=== PATIENT | female | born 1965 | race Caucasian/White ===

== ENCOUNTER 2021-07-28 13:59 | Inpatient (IN) | payer MEDICARE, OTHER ==
--- OUTSIDE RECORDS SUMMARY | 2021-07-28 14:05 | XMS REPORT | Continuity of Care Document ---
:1965 Author Organization [facility] t Address [address] [place] [address] Care Team Providers Name Role Phone ALAN_Miguel A Attending Clinician Unavailable Alan Attending Clinician [phone] DANNA Attending Clinician Unavailable Cabrera Nam Attending Clinician [phone] KWADWO Attending Clinician Unavailable KNOW Admitting Clinician Unavailable ISELA Admitting Clinician Unavailable DANNA Admitting Clinician Unavailable Payers Payer Name Policy Type Policy Number Effective Date Expiration Date [facility] [id number] 2021 (MEDICARE 00:00:00 REPLACEMENT/[place] GE - PPO) [place]IC[place]: [id number] 2009 [place] 00:00:00 Problems This patient has no known problems. Allergies, Adverse Reactions, Alerts Allergy Allergy Status Severity Reaction(s) Onset Inactive Treating Comm ents Source Name Type Date Date Clinician No Known DA Active U 2020-0 [facility] 00:00: Villagomez 00 [facility] No Known DA Active U 2020-0 [facility] Allergie - Clear s 00:00: Villagomez 00 [facility] Medications This patient has no known medications. Procedures Procedure Date / Time Performed Performing Clinician Deyanira palma [id number] 2019-02-16 00:00:00 [facility] [id number] 2019-02-16 00:00:00 [facility] Encounters Start End Encounter Admission Attending Care Care Encounter Source Date/Time Date/Time Type Type Clinicians Facility Department ID 2019-02-16 Inpatient HCACL MARCIN [id number] [facility] 03:33:00 [facility] 2019-02-16 Inpatient HCAPM MARCIN [id number] [facility] 01:51:00 [facility] 2021-07-27 2021-07-27 Outpatient CHRETIEN_F [facility] [address] 08:57:00 08:57:00 [facility] 2021-07-26 2021-07-26 Outpatient CHRETIEN_F [facility] [address] 02:14:00 02:14:00 [facility] 2021-07-26 2021-07-26 Outpatient Chretien, [facility] [id number] 00:00:00 00:00:00 Sarahy [id number] 2021-07-26 2021-07-26 Outpatient Chretien, [facility] [id number] 00:00:00 00:00:00 Sarahy [id number] 2021-07-22 2021-07-22 Outpatient CHRETIEN_F [facility] [address] 09:39:00 09:39:00 [facility] 2021-06-24 2021-06-24 Outpatient ERICKSON_R [facility] [address] 04:27:00 04:27:00 [facility] 2021-06-21 2021-06-21 Outpatient ERICKSON_R [facility] [address] 02:16:00 02:16:00 0509 [facility] 2021-06-21 2021-06-21 Outpatient Nam, [facility] [id number] 00:00:00 00:00:00 Fransico [id number] Cabrera [id number] 2021-06-15 2021-06-15 Outpatient ERICKSON_R [facility] [address] 10:18:00 10:18:00 0503 [facility] 2021-06-15 2021-06-15 Outpatient Cyril [facility] [id number] 00:00:00 00:00:00 Fransico [id number] Cabrera [id number] 2021-06-08 2021-06-08 Outpatient ERICKSON_R [facility] [address] 03:45:00 03:45:00 0426 [facility] 2021-06-08 2021-06-08 Outpatient Cyril [facility] [id number] 00:00:00 00:00:00 Fransico [id number] Cabrera [id number] Results Test Description Test Time Test Comments Results Result Comments Source GLUBED 2019-03-07 20:21:00 Test Item Value Reference Range Interpretation Comme nts GLUBED (test code = GLUBED) 145 MG/DL 70-110 H Performed by certified 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 [facility] [id number] 17:01:00 Test Item Value Reference Range Interpretation Comments GLUBED (test code = 150 MG/DL 70-110 H Performe d by certified GLUBED) 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 [facility] [id number] 08:05:00 Test Item Value Reference Range Interpretation Comments GLUBED (test code = 121 MG/DL 70-110 H Performe d by certified GLUBED) 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 [facility] [id number] 20:40:00 Test Item Value Reference Range Interpretation Comments GLUBED (test code = 182 MG/DL 70-110 H Performe d by certified GLUBED) 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 [facility] [id number] 16:53:00 Test Item Value Reference Range Interpretation Comments GLUBED (test code = 128 MG/DL 70-110 H Performe d by certified GLUBED) 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 [facility] [id number] 12:11:00 Test Item Value Reference Range Interpretation Comments GLUBED (test code = 105 MG/DL 70-110 N Performe d by certified GLUBED) 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 [facility] [id number] 09:10:00 Test Item Value Reference Range Interpretation Comments GLUBED (test code = 129 MG/DL 70-110 H Performe d by certified GLUBED) 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 [facility] [id number] 08:41:00 Test Item Value Reference Range Interpretation Comments GLUBED (test code = 141 MG/DL 70-110 H Performe d by certified GLUBED) 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 [facility] [id number] 16:12:00 Test Item Value Reference Range Interpretation Comments GLUBED (test code = 104 MG/DL 70-110 N Performe d by certified GLUBED) 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 [facility] [id number] 13:30:00 Test Item Value Reference Range Interpretation Comments GLUBED (test code = 118 MG/DL 70-110 H Performe d by certified GLUBED) 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 [facility] [id number] 08:52:00 Test Item Value Reference Range Interpretation Comments GLUBED (test code = 93 MG/DL 70-110 N Performe d by certified GLUBED) 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 [facility] [id number] 20:40:00 Test Item Value Reference Range Interpretation Comments GLUBED (test code = 181 MG/DL 70-110 H Performe d by certified GLUBED) 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 [facility] [id number] 18:12:00 Test Item Value Reference Range Interpretation Comments GLUBED (test code = 127 MG/DL 70-110 H Performe d by certified GLUBED) 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 [facility] [id number] 13:48:00 Test Item Value Reference Range Interpretation Comments GLUBED (test code = 97 MG/DL 70-110 N Performe d by certified GLUBED) 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 [facility] [id number] 08:44:00 Test Item Value Reference Range Interpretation Comments GLUBED (test code = 89 MG/DL 70-110 N Performe d by certified GLUBED) 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 [facility] BASIC METABOLIC [id number] 04:49:00 Test Item Value Reference Range Interpretation Comments SODIUM (test code = NA) 138 mEq/L 134-147 N POTASSIUM (test code = 4.0 mEq/L 3.4-5.0 N K) CHLORIDE (test code = 108 mEq/L 100-108 N CL) CARBON DIOXIDE (test 20 mEq/L 21-33 L code = CO2) ANION GAP (test code = 14 0-20 N GAP) GLUCOSE (test code = 194 mg/dL 70-110 H GLU) BLOOD UREA NITROGEN 16 mg/dL 7-18 N (test code = BUN) GLOMERULAR FILTRATION 52.4 90-95 L Units of measure = RATE (test code = GFR) ml/mi n/1.73 m2 CREATININE (test code = 1.1 mg/dL 0.6-1.3 N CREAT) CALCIUM (test code = 8.8 mg/dL 8.0-10.5 N CA) CBC W/AUTO [id number] 04:30:00 Test Item Value Reference Range Interpretation Comments WHITE BLOOD CELL (test code = 8.39 x10 3/uL 4.5-11.0 N WBC) RED BLOOD CELL (test code = 4.00 x10 6/uL 3.54-5.02 N RBC) HEMOGLOBIN (test code = HGB) 10.3 g/dL 11.0-15.0 L HEMATOCRIT (test code = HCT) 34.5 % 33.0-45.0 N MEAN CELL VOLUME (test code = 86.3 fL 81.0-99.0 N MCV) MEAN CELL HGB (test code = MCH) 25.8 pg 27.0-33.0 L MEAN CELL HGB CONCETRATION 29.9 g/dL 33.0-37.0 L (test code = MCHC) RED CELL DISTRIBUTION WIDTH CV 16.7 % 11.5-14.5 H (test code = RDW) RED CELL DISTRIBUTION WIDTH SD 51.2 fL 37.0-54.0 N (test code = RDW-SD) PLATELET COUNT (test code = 496 x10 3/uL 150-400 H PLT) MEAN PLATELET VOLUME (test code 11.9 fL 7.0-9.0 H = MPV) NEUTROPHIL % (test code = NT%) 67.9 % 56.0-77.0 N IMMATURE GRANULOCYTE % (test 1.2 % 0.0-2.0 N code = IG%) LYMPHOCYTE % (test code = LY%) 19.5 % 14.0-32.0 N MONOCYTE % (test code = MO%) 6.1 % 4.8-9.0 N EOSINOPHIL % (test code = EO%) 4.1 % 0.3-3.7 H BASOPHIL % (test code = BA%) 1.2 % 0.0-2.0 N NUCLEATED RBC % (test code = 0.0 % 0-0 N NRBC%) NEUTROPHIL # (test code = NT#) 5.70 x10 3/uL 2.0-7.6 N IMMATURE GRANULOCYTE # (test 0.10 x10 3/uL 0.00-0.03 H code = IG#) LYMPHOCYTE # (test code = LY#) 1.64 x10 3/uL 1.0-3.8 N MONOCYTE # (test code = MO#) 0.51 x10 3/uL 0.1-0.8 N EOSINOPHIL # (test code = EO#) 0.34 x10 3/uL 0.0-0.2 H BASOPHIL # (test code = BA#) 0.10 x10 3/uL 0.0-0.2 N NUCLEATED RBC # (test code = 0.00 x10 3/uL 0.0-0.1 N NRBC#) MANUAL DIFF REQUIRED (test code NO = MDIFF) [id number] 21:30:00 Test Item Value Reference Range Interpretation Comments GLUBED (test code = 163 MG/DL 70-110 H Performe d by certified GLUBED) 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 [facility] [id number] 18:12:00 Test Item Value Reference Range Interpretation Comments GLUBED (test code = 115 MG/DL 70-110 H Performe d by certified GLUBED) 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 [facility] [id number] 13:02:00 Test Item Value Reference Range Interpretation Comments GLUBED (test code = 95 MG/DL 70-110 N Performe d by certified GLUBED) 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 [facility] [id number] 08:38:00 Test Item Value Reference Range Interpretation Comments GLUBED (test code = 100 MG/DL 70-110 N Performe d by certified GLUBED) 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 [facility] [id number] 22:04:00 Test Item Value Reference Range Interpretation Comments GLUBED (test code = 118 MG/DL 70-110 H Performe d by certified GLUBED) 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 [facility] [id number] 17:07:00 Test Item Value Reference Range Interpretation Comments GLUBED (test code = 121 MG/DL 70-110 H Performe d by certified GLUBED) 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 [facility] [id number] 12:48:00 Test Item Value Reference Range Interpretation Comments GLUBED (test code = 98 MG/DL 70-110 N Performe d by certified GLUBED) 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 [facility] [id number] 08:23:00 Test Item Value Reference Range Interpretation Comments GLUBED (test code = 89 MG/DL 70-110 N Performe d by certified GLUBED) 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 [facility] BASIC METABOLIC [id number] 07:48:00 Test Item Value Reference Range Interpretation Comments SODIUM (test code = NA) 140 mEq/L 134-147 N POTASSIUM (test code = 3.5 mEq/L 3.4-5.0 N K) CHLORIDE (test code = 106 mEq/L 100-108 N CL) CARBON DIOXIDE (test 25 mEq/L 21-33 N code = CO2) ANION GAP (test code = 13 0-20 N GAP) GLUCOSE (test code = 100 mg/dL 70-110 N GLU) BLOOD UREA NITROGEN 15 mg/dL 7-18 (test code = BUN) GLOMERULAR FILTRATION 66.0 90-95 L Units of measure = RATE (test code = GFR) ml/mi n/1.73 m2 CREATININE (test code = 0.9 mg/dL 0.6-1.3 N CREAT) CALCIUM (test code = 8.9 mg/dL 8.0-10.5 N CA) CBC W/AUTO [id number] 07:21:00 Test Item Value Reference Range Interpretation Comments WHITE BLOOD CELL (test code = 8.05 x10 3/uL 4.5-11.0 N WBC) RED BLOOD CELL (test code = 4.08 x10 6/uL 3.54-5.02 N RBC) HEMOGLOBIN (test code = HGB) 10.6 g/dL 11.0-15.0 L HEMATOCRIT (test code = HCT) 35.5 % 33.0-45.0 N MEAN CELL VOLUME (test code = 87.0 fL 81.0-99.0 MCV) MEAN CELL HGB (test code = MCH) 26.0 pg 27.0-33.0 L MEAN CELL HGB CONCETRATION 29.9 g/dL 33.0-37.0 L (test code = MCHC) RED CELL DISTRIBUTION WIDTH CV 16.7 % 11.5-14.5 H (test code = RDW) RED CELL DISTRIBUTION WIDTH SD 52.0 fL 37.0-54.0 N (test code = RDW-SD) PLATELET COUNT (test code = 515 x10 3/uL 150-400 H PLT) MEAN PLATELET VOLUME (test code 11.7 fL 7.0-9.0 H = MPV) NEUTROPHIL % (test code = NT%) 63.6 % 56.0-77.0 N IMMATURE GRANULOCYTE % (test 1.1 % 0.0-2.0 N code = IG%) LYMPHOCYTE % (test code = LY%) 23.9 % 14.0-32.0 N MONOCYTE % (test code = MO%) 6.8 % 4.8-9.0 N EOSINOPHIL % (test code = EO%) 3.4 % 0.3-3.7 N BASOPHIL % (test code = BA%) 1.2 % 0.0-2.0 N NUCLEATED RBC % (test code = 0.0 % 0-0 N NRBC%) NEUTROPHIL # (test code = NT#) 5.12 x10 3/uL 2.0-7.6 N IMMATURE GRANULOCYTE # (test 0.09 x10 3/uL 0.00-0.03 H code = IG#) LYMPHOCYTE # (test code = LY#) 1.92 x10 3/uL 1.0-3.8 N MONOCYTE # (test code = MO#) 0.55 x10 3/uL 0.1-0.8 N EOSINOPHIL # (test code = EO#) 0.27 x10 3/uL 0.0-0.2 H BASOPHIL # (test code = BA#) 0.10 x10 3/uL 0.0-0.2 N NUCLEATED RBC # (test code = 0.00 x10 3/uL 0.0-0.1 N NRBC#) MANUAL DIFF REQUIRED (test code NO = MDIFF) [id number] 20:58:00 Test Item Value Reference Range Interpretation Comments GLUBED (test code = 164 MG/DL 70-110 H Performe d by certified GLUBED) 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 [facility] [id number] 17:08:00 Test Item Value Reference Range Interpretation Comments GLUBED (test code = 101 MG/DL 70-110 N Performe d by certified GLUBED) 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 [facility] [id number] 12:47:00 Test Item Value Reference Range Interpretation Comments GLUBED (test code = 95 MG/DL 70-110 N Performe d by certified GLUBED) 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 [facility] [id number] 09:33:00 Test Item Value Reference Range Interpretation Comments GLUBED (test code = 88 MG/DL 70-110 N Performe d by certified GLUBED) 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 [facility] CBC W/AUTO [id number] 09:10:00 Test Item Value Reference Range Interpretation Comments WHITE BLOOD CELL (test code = 8.16 x10 3/uL 4.5-11.0 N WBC) RED BLOOD CELL (test code = 4.44 x10 6/uL 3.54-5.02 N RBC) HEMOGLOBIN (test code = HGB) 11.3 g/dL 11.0-15.0 N HEMATOCRIT (test code = HCT) 36.7 % 33.0-45.0 N MEAN CELL VOLUME (test code = 82.7 fL 81.0-99.0 N MCV) MEAN CELL HGB (test code = MCH) 25.5 pg 27.0-33.0 L MEAN CELL HGB CONCETRATION 30.8 g/dL 33.0-37.0 L (test code = MCHC) RED CELL DISTRIBUTION WIDTH CV 16.6 % 11.5-14.5 H (test code = RDW) RED CELL DISTRIBUTION WIDTH SD 49.8 fL 37.0-54.0 N (test code = RDW-SD) PLATELET COUNT (test code = 545 x10 3/uL 150-400 H PLT) MEAN PLATELET VOLUME (test code 12.1 fL 7.0-9.0 H = MPV) NEUTROPHIL % (test code = NT%) 67.3 % 56.0-77.0 N IMMATURE GRANULOCYTE % (test 0.9 % 0.0-2.0 N code = IG%) LYMPHOCYTE % (test code = LY%) 21.7 % 14.0-32.0 N MONOCYTE % (test code = MO%) 5.5 % 4.8-9.0 N EOSINOPHIL % (test code = EO%) 3.4 % 0.3-3.7 N BASOPHIL % (test code = BA%) 1.2 % 0.0-2.0 N NUCLEATED RBC % (test code = 0.0 % 0-0 N NRBC%) NEUTROPHIL # (test code = NT#) 5.49 x10 3/uL 2.0-7.6 N IMMATURE GRANULOCYTE # (test 0.07 x10 3/uL 0.00-0.03 H code = IG#) LYMPHOCYTE # (test code = LY#) 1.77 x10 3/uL 1.0-3.8 N MONOCYTE # (test code = MO#) 0.45 x10 3/uL 0.1-0.8 N EOSINOPHIL # (test code = EO#) 0.28 x10 3/uL 0.0-0.2 H BASOPHIL # (test code = BA#) 0.10 x10 3/uL 0.0-0.2 N NUCLEATED RBC # (test code = 0.00 x10 3/uL 0.0-0.1 N NRBC#) MANUAL DIFF REQUIRED (test code NO = MDIFF) BASIC METABOLIC [id number] 08:12:00 Test Item Value Reference Range Interpretation Comments SODIUM (test code = NA) 141 mEq/L 134-147 N POTASSIUM (test code = 3.4 mEq/L 3.4-5.0 N K) CHLORIDE (test code = 108 mEq/L 100-108 N CL) CARBON DIOXIDE (test 26 mEq/L 21-33 N code = CO2) ANION GAP (test code = 10 0-20 N GAP) GLUCOSE (test code = 103 mg/dL 70-110 N GLU) BLOOD UREA NITROGEN 11 mg/dL 7-18 N (test code = BUN) GLOMERULAR FILTRATION 58.5 90-95 L Units of measure = RATE (test code = GFR) ml/mi n/1.73 m2 CREATININE (test code = 1.0 mg/dL 0.6-1.3 N CREAT) CALCIUM (test code = 9.6 mg/dL 8.0-10.5 N CA) [id number] 08:12:00 Test Item Value Reference Range Interpretation Comments MAGNESIUM (test code = MAG) 2.00 mg/dL 1.8-2.4 N [id number] 20:48:00 Test Item Value Reference Range Interpretation Comments GLUBED (test code = 138 MG/DL 70-110 H Performe d by certified GLUBED) 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 [facility] [id number] 16:50:00 Test Item Value Reference Range Interpretation Comments GLUBED (test code = 104 MG/DL 70-110 N Performe d by certified GLUBED) 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 [facility] [id number] 12:03:00 Test Item Value Reference Range Interpretation Comments GLUBED (test code = 98 MG/DL 70-110 N Performe d by certified GLUBED) 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 [facility] [id number] 08:44:00 Test Item Value Reference Range Interpretation Comments GLUBED (test code = 66 MG/DL 70-110 L Performe d by certified GLUBED) 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 [facility] BASIC METABOLIC [id number] 08:18:00 Test Item Value Reference Range Interpretation Comments SODIUM (test code = NA) 144 mEq/L 134-147 N POTASSIUM (test code = 3.0 mEq/L 3.4-5.0 L K) CHLORIDE (test code = 111 mEq/L 100-108 H CL) CARBON DIOXIDE (test 27 mEq/L 21-33 N code = CO2) ANION GAP (test code = 9 0-20 N GAP) GLUCOSE (test code = 105 mg/dL 70-110 N GLU) BLOOD UREA NITROGEN 13 mg/dL 7-18 N (test code = BUN) GLOMERULAR FILTRATION 66.0 90-95 L Units of measure = RATE (test code = GFR) ml/mi n/1.73 m2 CREATININE (test code = 0.9 mg/dL 0.6-1.3 N CREAT) CALCIUM (test code = 8.8 mg/dL 8.0-10.5 N CA) CBC W/AUTO [id number] 07:46:00 Test Item Value Reference Range Interpretation Comments WHITE BLOOD CELL (test code = 9.08 x10 3/uL 4.5-11.0 N WBC) RED BLOOD CELL (test code = 3.77 x10 6/uL 3.54-5.02 N RBC) HEMOGLOBIN (test code = HGB) 9.6 g/dL 11.0-15.0 L HEMATOCRIT (test code = HCT) 32.2 % 33.0-45.0 L MEAN CELL VOLUME (test code = 85.4 fL 81.0-99.0 N MCV) MEAN CELL HGB (test code = MCH) 25.5 pg 27.0-33.0 L MEAN CELL HGB CONCETRATION 29.8 g/dL 33.0-37.0 L (test code = MCHC) RED CELL DISTRIBUTION WIDTH CV 16.8 % 11.5-14.5 H (test code = RDW) RED CELL DISTRIBUTION WIDTH SD 51.6 fL 37.0-54.0 N (test code = RDW-SD) PLATELET COUNT (test code = 467 x10 3/uL 150-400 H PLT) MEAN PLATELET VOLUME (test code 11.5 fL 7.0-9.0 H = MPV) NEUTROPHIL % (test code = NT%) 60.8 % 56.0-77.0 N IMMATURE GRANULOCYTE % (test 0.9 % 0.0-2.0 N code = IG%) LYMPHOCYTE % (test code = LY%) 26.0 % 14.0-32.0 N MONOCYTE % (test code = MO%) 7.5 % 4.8-9.0 N EOSINOPHIL % (test code = EO%) 3.7 % 0.3-3.7 N BASOPHIL % (test code = BA%) 1.1 % 0.0-2.0 N NUCLEATED RBC % (test code = 0.0 % 0-0 N NRBC%) NEUTROPHIL # (test code = NT#) 5.52 x10 3/uL 2.0-7.6 N IMMATURE GRANULOCYTE # (test 0.08 x10 3/uL 0.00-0.03 H code = IG#) LYMPHOCYTE # (test code = LY#) 2.36 x10 3/uL 1.0-3.8 N MONOCYTE # (test code = MO#) 0.68 x10 3/uL 0.1-0.8 N EOSINOPHIL # (test code = EO#) 0.34 x10 3/uL 0.0-0.2 H BASOPHIL # (test code = BA#) 0.10 x10 3/uL 0.0-0.2 N NUCLEATED RBC # (test code = 0.00 x10 3/uL 0.0-0.1 N NRBC#) MANUAL DIFF REQUIRED (test code NO = MDIFF) [id number] 06:47:00 Test Item Value Reference Range Interpretation Comments GLUBED (test code = 75 MG/DL 70-110 N Performe d by certified GLUBED) 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 [facility] [id number] 06:46:00 Test Item Value Reference Range Interpretation Comments GLUBED (test code = 105 MG/DL 70-110 N Performe d by certified GLUBED) 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 [facility] [id number] 20:23:00 Test Item Value Reference Range Interpretation Comments GLUBED (test code = 170 MG/DL 70-110 H Performe d by certified GLUBED) 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 [facility] [id number] 17:23:00 Test Item Value Reference Range Interpretation Comments GLUBED (test code = 100 MG/DL 70-110 N Performe d by certified GLUBED) 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 [facility] BASIC METABOLIC [id number] 06:37:00 Test Item Value Reference Range Interpretation Comments SODIUM (test code = NA) 147 mEq/L 134-147 N POTASSIUM (test code = 3.3 mEq/L 3.4-5.0 L K) CHLORIDE (test code = 115 mEq/L 100-108 H CL) CARBON DIOXIDE (test 24 mEq/L 21-33 N code = CO2) ANION GAP (test code = 11 0-20 N GAP) GLUCOSE (test code = 125 mg/dL 70-110 H GLU) BLOOD UREA NITROGEN 11 mg/dL 7-18 N (test code = BUN) GLOMERULAR FILTRATION 58.5 90-95 L Units of measure = RATE (test code = GFR) ml/mi n/1.73 m2 CREATININE (test code = 1.0 mg/dL 0.6-1.3 N CREAT) CALCIUM (test code = 8.8 mg/dL 8.0-10.5 N CA) CBC W/AUTO [id number] 05:51:00 Test Item Value Reference Range Interpretation Comments WHITE BLOOD CELL (test code = 7.14 x10 3/uL 4.5-11.0 N WBC) RED BLOOD CELL (test code = 3.59 x10 6/uL 3.54-5.02 N RBC) HEMOGLOBIN (test code = HGB) 9.2 g/dL 11.0-15.0 L HEMATOCRIT (test code = HCT) 30.7 % 33.0-45.0 L MEAN CELL VOLUME (test code = 85.5 fL 81.0-99.0 N MCV) MEAN CELL HGB (test code = MCH) 25.6 pg 27.0-33.0 L MEAN CELL HGB CONCETRATION 30.0 g/dL 33.0-37.0 L (test code = MCHC) RED CELL DISTRIBUTION WIDTH CV 16.6 % 11.5-14.5 H (test code = RDW) RED CELL DISTRIBUTION WIDTH SD 51.9 fL 37.0-54.0 N (test code = RDW-SD) PLATELET COUNT (test code = 415 x10 3/uL 150-400 H PLT) MEAN PLATELET VOLUME (test code 11.0 fL 7.0-9.0 H = MPV) NEUTROPHIL % (test code = NT%) 65.3 % 56.0-77.0 N IMMATURE GRANULOCYTE % (test 1.1 % 0.0-2.0 N code = IG%) LYMPHOCYTE % (test code = LY%) 22.0 % 14.0-32.0 N MONOCYTE % (test code = MO%) 6.7 % 4.8-9.0 N EOSINOPHIL % (test code = EO%) 4.1 % 0.3-3.7 H BASOPHIL % (test code = BA%) 0.8 % 0.0-2.0 N NUCLEATED RBC % (test code = 0.0 % 0-0 N NRBC%) NEUTROPHIL # (test code = NT#) 4.66 x10 3/uL 2.0-7.6 N IMMATURE GRANULOCYTE # (test 0.08 x10 3/uL 0.00-0.03 H code = IG#) LYMPHOCYTE # (test code = LY#) 1.57 x10 3/uL 1.0-3.8 N MONOCYTE # (test code = MO#) 0.48 x10 3/uL 0.1-0.8 N EOSINOPHIL # (test code = EO#) 0.29 x10 3/uL 0.0-0.2 H BASOPHIL # (test code = BA#) 0.06 x10 3/uL 0.0-0.2 N NUCLEATED RBC # (test code = 0.00 x10 3/uL 0.0-0.1 N NRBC#) MANUAL DIFF REQUIRED (test code NO = MDIFF) [id number] 21:53:00 Test Item Value Reference Range Interpretation Comments GLUBED (test code = 110 MG/DL 70-110 N Performe d by certified GLUBED) 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 [facility] [id number] 12:32:00 Test Item Value Reference Range Interpretation Comments GLUBED (test code = 117 MG/DL 70-110 H Performe d by certified GLUBED) 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 [facility] BASIC METABOLIC [id number] 05:49:00 Test Item Value Reference Range Interpretation Comments SODIUM (test code = NA) 149 mEq/L 134-147 H POTASSIUM (test code = 3.3 mEq/L 3.4-5.0 L K) CHLORIDE (test code = 118 mEq/L 100-108 H CL) CARBON DIOXIDE (test 23 mEq/L 21-33 N code = CO2) ANION GAP (test code = 11 0-20 N GAP) GLUCOSE (test code = 114 mg/dL 70-110 H GLU) BLOOD UREA NITROGEN 10 mg/dL 7-18 N (test code = BUN) GLOMERULAR FILTRATION 75.6 90-95 L Units of measure = RATE (test code = GFR) ml/mi n/1.73 m2 CREATININE (test code = 0.8 mg/dL 0.6-1.3 N CREAT) CALCIUM (test code = 8.7 mg/dL 8.0-10.5 N CA) CBC W/AUTO [id number] 05:33:00 Test Item Value Reference Range Interpretation Comments WHITE BLOOD CELL (test code = 6.40 x10 3/uL 4.5-11.0 N WBC) RED BLOOD CELL (test code = 3.43 x10 6/uL 3.54-5.02 L RBC) HEMOGLOBIN (test code = HGB) 8.8 g/dL 11.0-15.0 L HEMATOCRIT (test code = HCT) 29.1 % 33.0-45.0 L MEAN CELL VOLUME (test code = 84.8 fL 81.0-99.0 N MCV) MEAN CELL HGB (test code = MCH) 25.7 pg 27.0-33.0 L MEAN CELL HGB CONCETRATION 30.2 g/dL 33.0-37.0 L (test code = MCHC) RED CELL DISTRIBUTION WIDTH CV 16.4 % 11.5-14.5 H (test code = RDW) RED CELL DISTRIBUTION WIDTH SD 50.8 fL 37.0-54.0 N (test code = RDW-SD) PLATELET COUNT (test code = 409 x10 3/uL 150-400 H PLT) MEAN PLATELET VOLUME (test code 10.8 fL 7.0-9.0 H = MPV) NEUTROPHIL % (test code = NT%) 63.5 % 56.0-77.0 N IMMATURE GRANULOCYTE % (test 0.6 % 0.0-2.0 N code = IG%) LYMPHOCYTE % (test code = LY%) 22.8 % 14.0-32.0 N MONOCYTE % (test code = MO%) 8.3 % 4.8-9.0 N EOSINOPHIL % (test code = EO%) 4.2 % 0.3-3.7 H BASOPHIL % (test code = BA%) 0.6 % 0.0-2.0 N NUCLEATED RBC % (test code = 0.0 % 0-0 N NRBC%) NEUTROPHIL # (test code = NT#) 4.06 x10 3/uL 2.0-7.6 N IMMATURE GRANULOCYTE # (test 0.04 x10 3/uL 0.00-0.03 H code = IG#) LYMPHOCYTE # (test code = LY#) 1.46 x10 3/uL 1.0-3.8 N MONOCYTE # (test code = MO#) 0.53 x10 3/uL 0.1-0.8 N EOSINOPHIL # (test code = EO#) 0.27 x10 3/uL 0.0-0.2 H BASOPHIL # (test code = BA#) 0.04 x10 3/uL 0.0-0.2 N NUCLEATED RBC # (test code = 0.00 x10 3/uL 0.0-0.1 N NRBC#) MANUAL DIFF REQUIRED (test code NO = MDIFF) [id number] 20:44:00 Test Item Value Reference Range Interpretation Comments GLUBED (test code = 89 MG/DL 70-110 N Performe d by certified GLUBED) 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 [facility] [id number] 18:45:00 Test Item Value Reference Range Interpretation Comments GLUBED (test code = 115 MG/DL 70-110 H Performe d by certified GLUBED) 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 [facility] - DOP TRANSCRANIAL [id number] 15:21:00 Name: BRIAN RANDHAWA [facility] Wil[place] : 1965 Age/S: 53 / F [address] [place] [address] Unit #: [id number] Loc: Joni [id number] Phys: Rosario Phillip 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 HISTORY: Subarachnoid hemorrhage. COMPARISON: Transcranial Doppler from 02/22/2019 and 2 prior Doppler studies dating back to 02/18/2019. FINDINGS: Examination could not be completed due to persistent patient movement. Therefore,the vertebrobasilar circulation could not be evaluated. Obtained findings as described below, POSTERIOR FOSSA: PSV (cm/sec) MFV (cm/sec) Basilar artery: N/A N/A Right vertebral artery: N/A N/A Left vertebral artery: N/A N/A RIGHT: PSV (cm/sec) MFV (cm/sec) Middle cerebral artery: 524 274Anterior cerebral artery: 257 143 Lind[place]ard Ratio = 2.8 LEFT: PSV (cm/sec) MFV (cm/sec) Middle cerebral artery: 1.88 0.86 Anterior cerebral artery: 404 209 Lind[place]ard Ratio = 0.77 IMPRESSION: 1. Worsening severe right middle cerebral artery vasospasm. 2. Improved moderate right anterior cerebral artery vasospasm. 3. Developing severe left anterior cerebral artery vasospasm. No vasospasm in the left MCA. 4. Nonvisualized vertebrobasilar circulation. End Impression MCA: Severity of PSV (cm/sec) MFV (cm/sec) Lindegaard Ratio vasospasm Mild 200-250 120-150 3-4.5 Moderate 250-300 150-200 4.5-6.0 Severe >300 >200 >6 PAGE 1 Signed Report (CONTINUED) Name: BRIAN RANDHAWA [facility] [place] : 1965 Age/S: 53 / F [address] [place] [address] Blvd Unit #: [id number] Loc: JoniCARLINE [address]71 Phys: Rosario Phillip NP Acct: [id number] Dis Date: Status: ADM IN PHONE #: [phone] Exam Date: 02/25/20191425 FAX #: [phone] Reason: sah EXAMS: CPT CODE: [id number] DOP TRANSCRANIAL COMP 44442<Continued> PARTS SALESMAN and GERRI: Vessel PSV (cm/sec) MFV (cm/sec) PARTS SALESMAN >120 >85 GERRI >120 >80 SL: ER-H at 1521 Reported and signed by: Yonathan Hardy M.D. 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 PROCEDURE: Multiple axial images from the skull base to the skull vertex were obtained without contrast. Coronal and sagittal reconstructed images were performed CT imaging performed at this location utilizes radiation dose optimization techniques which include one or more of the following: -Automated exposure control -Adjustment of the mA and/or kV according to patient size -Use of iterative reconstruction technique CT Radiation Dose DLP 419.7 mGy-cm Comparison is made to 02/22/2019 FINDINGS: Right lateral craniotomy defect is again noted. There is an aneurysm clip near the distal right internal carotid artery. The amount of pneumocephalus is decreased. Hemorrhage in the medial anterior right frontal lobe previouslymeasured 2.4 x 1.4 x 2.5 cm and currently measures 1.5 x 1.0 x 2.0 cm. Decreased density in the right GERRI distribution is unchanged. No new infarct is noted. No new hemorrhage is noted. No hydrocephalus is present. The amount of intraventricular hemorrhage has decreased from prior study. 3 mm leftward midline shift is unchanged. IMPRESSION: 1. Decreasing parenchymal hemorrhage in right frontal lobe. 2. 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 3. Decreasing intraventricular hemorrhage. No hydrocephalus. 4. No new hemorrhage. No new infarct. 5. Decreasing pneumocephalus after right lateral craniotomy and clipping of distal right ICA aneurysm. SL: [id number] at 1318 Reported and signed by: Baldemar Carey M.D. PAGE1 Signed Report (CONTINUED) Name: BRIAN RANDHAWA [facility] : 1965 Age/S: 53 / F [address] [place] [address] Blvd Unit #: [id number] Loc: CARLINE [place] [address] Phys: Penelope,Veronica NETWORK SYSTEMS ANALYST Acct: [id number] Dis Date: Status: ADM IN PHONE #: [phone] Exam Date: 02/25/2019 1232 FAX #: [phone] Reason: SAH EXAMS: CPT CODE: [id number] CT HEAD/BRAIN W/O CONT 83326 <Continued> CC: Penelope NETWORK SYSTEMS ANALYST; Raphael Fonseca MD Technologist:Alex Hammer, RT(R) CTDI: DLP: Trnscb Date/Time: 02/25/2019 (1318) [email or web address] Orig Print D/T: S: 02/25/2019 (1321) PAGE 2 Signed [id number] 09:50:00 Test Item Value Reference Range Interpretation Comments GLUBED (test code = 89 MG/DL 70-110 N Performe d by certified GLUBED) 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 [facility] [id number] 09:49:00 Test Item Value Reference Range Interpretation Comments GLUBED (test code = 75 MG/DL 70-110 N Performe d by certified GLUBED) 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 [facility] BASIC METABOLIC [id number] 07:15:00 Test Item Value Reference Range Interpretation Comments SODIUM (test code = NA) 146 mEq/L 134-147 N POTASSIUM (test code = 3.6 mEq/L 3.4-5.0 N K) CHLORIDE (test code = 117 mEq/L 100-108 H CL) CARBON DIOXIDE (test 23 mEq/L 21-33 N code = CO2) ANION GAP (test code = 10 0-20 N GAP) GLUCOSE (test code = 128 mg/dL 70-110 H GLU) BLOOD UREA NITROGEN 10 mg/dL 7-18 N (test code = BUN) GLOMERULAR FILTRATION 88.2 90-95 L Units of measure = RATE (test code = GFR) ml/mi n/1.73 m2 CREATININE (test code = 0.7 mg/dL 0.6-1.3 N CREAT) CALCIUM (test code = 7.9 mg/dL 8.0-10.5 L CA) [id number] 07:15:00 Test Item Value Reference Range Interpretation Comments PHOSPHOROUS (test code = PHOS) 2.7 MG/DL 2.5-4.9 N [id number] 07:15:00 Test Item Value Reference Range Interpretation Comments MAGNESIUM (test code = MAG) 2.00 mg/dL 1.8-2.4 N CALCIUM [id number] 07:15:00 Test Item Value Reference Range Interpretation Comments CALCIUM IONIZED (test code = KENTRELL) 1.16 MMOL/L 1.12-1.32 N BASIC METABOLIC [id number] 07:07:00 Test Item Value Reference Range Interpretation Comments SODIUM (test code = NA) 146 mEq/L 134-147 N POTASSIUM (test code = K) 3.6 mEq/L 3.4-5.0 N CHLORIDE (test code = CL) 117 mEq/L 100-108 H CARBON DIOXIDE (test code = CO2) 23 mEq/L 21-33 N ANION GAP (test code = GAP) 10 0-20 N GLUCOSE (test code = GLU) 128 mg/dL 70-110 H BLOOD UREA NITROGEN (test code = 10 mg/dL 7-18 N BUN) GLOMERULAR FILTRATION RATE (test 90-95 code = GFR) CREATININE (test code = CREAT) mg/dL 0.6-1.3 CALCIUM (test code = CA) 7.9 mg/dL 8.0-10.5 L [id number] 07:07:00 Test Item Value Reference Range Interpretation Comments PHOSPHOROUS (test code = PHOS) MG/DL 2.5-4.9 [id number] 07:07:00 Test Item Value Reference Range Interpretation Comments MAGNESIUM (test code = MAG) 2.00 mg/dL 1.8-2.4 N CALCIUM [id number] 07:07:00 Test Item Value Reference Range Interpretation Comments CALCIUM IONIZED (test code = KENTRELL) MMOL/L 1.12-1.32 BASIC METABOLIC [id number] 07:07:00 Test Item Value Reference Range Interpretation Comments SODIUM (test code = NA) 146 mEq/L 134-147 N POTASSIUM (test code = 3.6 mEq/L 3.4-5.0 N K) CHLORIDE (test code = 117 mEq/L 100-108 H CL) CARBON DIOXIDE (test 23 mEq/L 21-33 N code = CO2) ANION GAP (test code = 10 0-20 N GAP) GLUCOSE (test code = 128 mg/dL 70-110 H GLU) BLOOD UREA NITROGEN 10 mg/dL 7-18 N (test code = BUN) GLOMERULAR FILTRATION 88.2 90-95 L Units of measure = RATE (test code = GFR) ml/mi n/1.73 m2 CREATININE (test code = 0.7 mg/dL 0.6-1.3 N CREAT) CALCIUM (test code = 7.9 mg/dL 8.0-10.5 L CA) [id number] 07:07:00 Test Item Value Reference Range Interpretation Comments PHOSPHOROUS (test code = PHOS) 2.7 MG/DL 2.5-4.9 N [id number] 07:07:00 Test Item Value Reference Range Interpretation Comments MAGNESIUM (test code = MAG) 2.00 mg/dL 1.8-2.4 N CALCIUM [id number] 07:07:00 Test Item Value Reference Range Interpretation Comments CALCIUM IONIZED (test code = KENTRELL) MMOL/L 1.12-1.32 CBC W/AUTO [id number] 06:24:00 Test Item Value Reference Range Interpretation Comments WHITE BLOOD CELL (test code = 5.71 x10 3/uL 4.5-11.0 N WBC) RED BLOOD CELL (test code = 3.13 x10 6/uL 3.54-5.02 L RBC) HEMOGLOBIN (test code = HGB) 8.1 g/dL 11.0-15.0 L HEMATOCRIT (test code = HCT) 26.8 % 33.0-45.0 L MEAN CELL VOLUME (test code = 85.6 fL 81.0-99.0 N MCV) MEAN CELL HGB (test code = MCH) 25.9 pg 27.0-33.0 L MEAN CELL HGB CONCETRATION 30.2 g/dL 33.0-37.0 L (test code = MCHC) RED CELL DISTRIBUTION WIDTH CV 16.5 % 11.5-14.5 H (test code = RDW) RED CELL DISTRIBUTION WIDTH SD 51.6 fL 37.0-54.0 N (test code = RDW-SD) PLATELET COUNT (test code = 320 x10 3/uL 150-400 N PLT) MEAN PLATELET VOLUME (test code 11.0 fL 7.0-9.0 H = MPV) NEUTROPHIL % (test code = NT%) 60.8 % 56.0-77.0 N IMMATURE GRANULOCYTE % (test 1.1 % 0.0-2.0 N code = IG%) LYMPHOCYTE % (test code = LY%) 26.8 % 14.0-32.0 N MONOCYTE % (test code = MO%) 6.0 % 4.8-9.0 N EOSINOPHIL % (test code = EO%) 4.6 % 0.3-3.7 H BASOPHIL % (test code = BA%) 0.7 % 0.0-2.0 N NUCLEATED RBC % (test code = 0.0 % 0-0 N NRBC%) NEUTROPHIL # (test code = NT#) 3.48 x10 3/uL 2.0-7.6 N IMMATURE GRANULOCYTE # (test 0.06 x10 3/uL 0.00-0.03 H code = IG#) LYMPHOCYTE # (test code = LY#) 1.53 x10 3/uL 1.0-3.8 N MONOCYTE # (test code = MO#) 0.34 x10 3/uL 0.1-0.8 N EOSINOPHIL # (test code = EO#) 0.26 x10 3/uL 0.0-0.2 H BASOPHIL # (test code = BA#) 0.04 x10 3/uL 0.0-0.2 N NUCLEATED RBC # (test code = 0.00 x10 3/uL 0.0-0.1 N NRBC#) MANUAL DIFF REQUIRED (test code NO = MDIFF) [id number] 22:00:00 Test Item Value Reference Range Interpretation Comments GLUBED (test code = 140 MG/DL 70-110 H Performe d by certified GLUBED) 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 [facility] [id number] 16:37:00 Test Item Value Reference Range Interpretation Comments GLUBED (test code = 86 MG/DL 70-110 N Performe d by certified GLUBED) 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 [facility] [id number] 15:35:00 Test Item Value Reference Range Interpretation Comments GLUBED (test code = 118 MG/DL 70-110 H Performe d by certified GLUBED) 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 [facility] BASIC METABOLIC [id number] 14:18:00 Test Item Value Reference Range Interpretation Comments SODIUM (test code = NA) 146 mEq/L 134-147 N POTASSIUM (test code = 3.5 mEq/L 3.4-5.0 N K) CHLORIDE (test code = 116 mEq/L 100-108 H CL) CARBON DIOXIDE (test 24 mEq/L 21-33 code = CO2) ANION GAP (test code = 10 0-20 N GAP) GLUCOSE (test code = 185 mg/dL 70-110 H GLU) BLOOD UREA NITROGEN 13 mg/dL 7-18 N (test code = BUN) GLOMERULAR FILTRATION 75.6 90-95 L Units of measure = RATE (test code = GFR) ml/mi n/1.73 m2 CREATININE (test code = 0.8 mg/dL 0.6-1.3 N CREAT) CALCIUM (test code = 8.2 mg/dL 8.0-10.5 N CA) [id number] 14:18:00 Test Item Value Reference Range Interpretation Comments PHOSPHOROUS (test code = PHOS) 2.4 MG/DL 2.5-4.9 L [id number] 14:18:00 Test Item Value Reference Range Interpretation Comments MAGNESIUM (test code = MAG) 1.90 mg/dL 1.8-2.4 N CALCIUM [id number] 14:18:00 Test Item Value Reference Range Interpretation Comments CALCIUM IONIZED (test code = KENTRELL) 1.20 MMOL/L 1.12-1.32 N CBC W/AUTO [id number] 14:05:00 Test Item Value Reference Range Interpretation Comments WHITE BLOOD CELL (test code = 8.49 x10 3/uL 4.5-11.0 N WBC) RED BLOOD CELL (test code = 3.54 x10 6/uL 3.54-5.02 N RBC) HEMOGLOBIN (test code = HGB) 9.2 g/dL 11.0-15.0 L HEMATOCRIT (test code = HCT) 30.0 % 33.0-45.0 L MEAN CELL VOLUME (test code = 84.7 fL 81.0-99.0 N MCV) MEAN CELL HGB (test code = MCH) 26.0 pg 27.0-33.0 L MEAN CELL HGB CONCETRATION 30.7 g/dL 33.0-37.0 L (test code = MCHC) RED CELL DISTRIBUTION WIDTH CV 16.7 % 11.5-14.5 H (test code = RDW) RED CELL DISTRIBUTION WIDTH SD 52.1 fL 37.0-54.0 N (test code = RDW-SD) PLATELET COUNT (test code = 366 x10 3/uL 150-400 N PLT) MEAN PLATELET VOLUME (test code 10.8 fL 7.0-9.0 H = MPV) NEUTROPHIL % (test code = NT%) 66.7 % 56.0-77.0 N IMMATURE GRANULOCYTE % (test 0.8 % 0.0-2.0 N code = IG%) LYMPHOCYTE % (test code = LY%) 22.3 % 14.0-32.0 N MONOCYTE % (test code = MO%) 5.3 % 4.8-9.0 N EOSINOPHIL % (test code = EO%) 4.1 % 0.3-3.7 H BASOPHIL % (test code = BA%) 0.8 % 0.0-2.0 N NUCLEATED RBC % (test code = 0.0 % 0-0 N NRBC%) NEUTROPHIL # (test code = NT#) 5.66 x10 3/uL 2.0-7.6 N IMMATURE GRANULOCYTE # (test 0.07 x10 3/uL 0.00-0.03 H code = IG#) LYMPHOCYTE # (test code = LY#) 1.89 x10 3/uL 1.0-3.8 N MONOCYTE # (test code = MO#) 0.45 x10 3/uL 0.1-0.8 N EOSINOPHIL # (test code = EO#) 0.35 x10 3/uL 0.0-0.2 H BASOPHIL # (test code = BA#) 0.07 x10 3/uL 0.0-0.2 N NUCLEATED RBC # (test code = 0.00 x10 3/uL 0.0-0.1 N NRBC#) MANUAL DIFF REQUIRED (test code NO = MDIFF) BASIC METABOLIC [id number] 14:01:00 Test Item Value Reference Range Interpretation Comments SODIUM (test code = NA) mEq/L 134-147 POTASSIUM (test code = K) mEq/L 3.4-5.0 CHLORIDE (test code = CL) mEq/L 100-108 CARBON DIOXIDE (test code = CO2) mEq/L 21-33 ANION GAP (test code = GAP) 0-20 GLUCOSE (test code = GLU) mg/dL 70-110 BLOOD UREA NITROGEN (test code = BUN) mg/dL 7-18 GLOMERULAR FILTRATION RATE (test code 90-95 = GFR) CREATININE (test code = CREAT) mg/dL 0.6-1.3 CALCIUM (test code = CA) mg/dL 8.0-10.5 [id number] 14:01:00 Test Item Value Reference Range Interpretation Comments PHOSPHOROUS (test code = PHOS) MG/DL 2.5-4.9 [id number] 14:01:00 Test Item Value Reference Range Interpretation Comments MAGNESIUM (test code = MAG) mg/dL 1.8-2.4 CALCIUM [id number] 14:01:00 Test Item Value Reference Range Interpretation Comments CALCIUM IONIZED (test code = KENTRELL) 1.20 MMOL/L 1.12-1.32 N - XR CHEST 1 [id number] 13:00:00 FAX: Carlyn Robertson NP [phone] [place] St: ADM FAX: Raphael Hickey MD [phone] Name: BRIAN RANDHAWA [facility] : 1965 Age/S: 53/F [address] [place] [address] Unit #: [id number] Loc: [place] [address] Phys: Carlyn Robertson NP Acct: [id number] Dis Date: Status: ADM IN PHONE #: [phone] Exam Date: 02/24/2019 5212 FAX #: [phone] Reason: follow up EXAMS: CPT CODE: [id number] XR CHEST 1 V 48155 Chest single view 02/24/2019 HISTORY: Subarachnoid hemorrhage. Right craniotomy. Follow up Comparison is made to 02/16/2019. FINDINGS: The left costophrenic angle is stable. No consolidation or pleural effusion is present. Heart size is normal. Aorta is within normal limits. No vascular congestion or interstitial edema is present. IMPRESSION: No acute cardiopulmonary process. SL: [id number] at 1300 Reported and signed by: Baldemar Carey M.D. CC: Carlyn Robertson NP; Raphael Fonseca MD Technologist: SHAYNE Almanza RT(R) Trnscrd Date/Time/By: 02/24/2019 (1300) : By: [id number] Orig Print D/T: S: 02/24/2019 (1863) PAGE 1 Signed [id number] 10:16:00 Test Item Value Reference Range Interpretation Comments GLUBED (test code = 116 MG/DL 70-110 H Performe d by certified GLUBED) 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 [facility] [id number] 21:19:00 Test Item Value Reference Range Interpretation Comments GLUBED (test code = 130 MG/DL 70-110 H Performe d by certified GLUBED) 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 [facility] [id number] 16:36:00 Test Item Value Reference Range Interpretation Comments GLUBED (test code = 85 MG/DL 70-110 N Performe d by certified GLUBED) 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 [facility] [id number] 16:36:00 Test Item Value Reference Range Interpretation Comments GLUBED (test code = 88 MG/DL 70-110 N Performe d by certified GLUBED) 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 [facility] CBC W/AUTO [id number] 08:08:00 Test Item Value Reference Range Interpretation Comments WHITE BLOOD CELL (test code = 8.95 x10 3/uL 4.5-11.0 N WBC) RED BLOOD CELL (test code = 3.80 x10 6/uL 3.54-5.02 N RBC) HEMOGLOBIN (test code = HGB) 9.9 g/dL 11.0-15.0 L HEMATOCRIT (test code = HCT) 32.4 % 33.0-45.0 L MEAN CELL VOLUME (test code = 85.3 fL 81.0-99.0 N MCV) MEAN CELL HGB (test code = MCH) 26.1 pg 27.0-33.0 L MEAN CELL HGB CONCETRATION 30.6 g/dL 33.0-37.0 L (test code = MCHC) RED CELL DISTRIBUTION WIDTH CV 17.0 % 11.5-14.5 H (test code = RDW) RED CELL DISTRIBUTION WIDTH SD 52.4 fL 37.0-54.0 N (test code = RDW-SD) PLATELET COUNT (test code = 396 x10 3/uL 150-400 N PLT) MEAN PLATELET VOLUME (test code 11.4 fL 7.0-9.0 H = MPV) NEUTROPHIL % (test code = NT%) 70.0 % 56.0-77.0 N IMMATURE GRANULOCYTE % (test 0.7 % 0.0-2.0 N code = IG%) LYMPHOCYTE % (test code = LY%) 16.4 % 14.0-32.0 N MONOCYTE % (test code = MO%) 8.2 % 4.8-9.0 N EOSINOPHIL % (test code = EO%) 3.9 % 0.3-3.7 H BASOPHIL % (test code = BA%) 0.8 % 0.0-2.0 N NUCLEATED RBC % (test code = 0.0 % 0-0 N NRBC%) NEUTROPHIL # (test code = NT#) 6.27 x10 3/uL 2.0-7.6 N IMMATURE GRANULOCYTE # (test 0.06 x10 3/uL 0.00-0.03 H code = IG#) LYMPHOCYTE # (test code = LY#) 1.47 x10 3/uL 1.0-3.8 N MONOCYTE # (test code = MO#) 0.73 x10 3/uL 0.1-0.8 N EOSINOPHIL # (test code = EO#) 0.35 x10 3/uL 0.0-0.2 H BASOPHIL # (test code = BA#) 0.07 x10 3/uL 0.0-0.2 N NUCLEATED RBC # (test code = 0.00 x10 3/uL 0.0-0.1 N NRBC#) MANUAL DIFF REQUIRED (test code NO = MDIFF) [id number] 06:02:00 Test Item Value Reference Range Interpretation Comments GLUBED (test code = 102 MG/DL 70-110 N Performe d by certified GLUBED) 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 [facility] BASIC METABOLIC [id number] 05:33:00 Test Item Value Reference Range Interpretation Comments SODIUM (test code = NA) 146 mEq/L 134-147 N POTASSIUM (test code = 3.7 mEq/L 3.4-5.0 N K) CHLORIDE (test code = 117 mEq/L 100-108 H CL) CARBON DIOXIDE (test 18 mEq/L 21-33 L code = CO2) ANION GAP (test code = 15 0-20 N GAP) GLUCOSE (test code = 117 mg/dL 70-110 H GLU) BLOOD UREA NITROGEN 15 mg/dL 7-18 N (test code = BUN) GLOMERULAR FILTRATION 66.0 90-95 L Units of measure = RATE (test code = GFR) ml/mi n/1.73 m2 CREATININE (test code = 0.9 mg/dL 0.6-1.3 CREAT) CALCIUM (test code = 7.7 mg/dL 8.0-10.5 L CA) [id number] 05:33:00 Test Item Value Reference Range Interpretation Comments MAGNESIUM (test code = MAG) 2.10 mg/dL 1.8-2.4 N [id number] 05:23:00 Test Item Value Reference Range Interpretation Comments GLUBED (test code = 103 MG/DL 70-110 N Performe d by certified GLUBED) 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 [facility] [id number] 16:51:00 Test Item Value Reference Range Interpretation Comments GLUBED (test code = 116 MG/DL 70-110 H Performe d by certified GLUBED) 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 [facility] [id number] 12:34:00 Test Item Value Reference Range Interpretation Comments GLUBED (test code = 88 MG/DL 70-110 N Performe d by certified GLUBED) 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 [facility] CBC W/AUTO [id number] 09:13:00 Test Item Value Reference Range Interpretation Comments WHITE BLOOD CELL (test code = 8.59 x10 3/uL 4.5-11.0 N WBC) RED BLOOD CELL (test code = 3.71 x10 6/uL 3.54-5.02 N RBC) HEMOGLOBIN (test code = HGB) 9.5 g/dL 11.0-15.0 L HEMATOCRIT (test code = HCT) 32.2 % 33.0-45.0 L MEAN CELL VOLUME (test code = 86.8 fL 81.0-99.0 N MCV) MEAN CELL HGB (test code = MCH) 25.6 pg 27.0-33.0 L MEAN CELL HGB CONCETRATION 29.5 g/dL 33.0-37.0 L (test code = MCHC) RED CELL DISTRIBUTION WIDTH CV 17.0 % 11.5-14.5 H (test code = RDW) RED CELL DISTRIBUTION WIDTH SD 54.1 fL 37.0-54.0 H (test code = RDW-SD) PLATELET COUNT (test code = 337 x10 3/uL 150-400 N PLT) MEAN PLATELET VOLUME (test code 11.5 fL 7.0-9.0 H = MPV) NEUTROPHIL % (test code = NT%) 70.1 % 56.0-77.0 N IMMATURE GRANULOCYTE % (test 0.6 % 0.0-2.0 N code = IG%) LYMPHOCYTE % (test code = LY%) 16.4 % 14.0-32.0 N MONOCYTE % (test code = MO%) 7.9 % 4.8-9.0 N EOSINOPHIL % (test code = EO%) 4.4 % 0.3-3.7 H BASOPHIL % (test code = BA%) 0.6 % 0.0-2.0 N NUCLEATED RBC % (test code = 0.0 % 0-0 N NRBC%) NEUTROPHIL # (test code = NT#) 6.02 x10 3/uL 2.0-7.6 N IMMATURE GRANULOCYTE # (test 0.05 x10 3/uL 0.00-0.03 H code = IG#) LYMPHOCYTE # (test code = LY#) 1.41 x10 3/uL 1.0-3.8 N MONOCYTE # (test code = MO#) 0.68 x10 3/uL 0.1-0.8 N EOSINOPHIL # (test code = EO#) 0.38 x10 3/uL 0.0-0.2 H BASOPHIL # (test code = BA#) 0.05 x10 3/uL 0.0-0.2 N NUCLEATED RBC # (test code = 0.00 x10 3/uL 0.0-0.1 N NRBC#) MANUAL DIFF REQUIRED (test code NO = MDIFF) - DOP TRANSCRANIAL [id number] 09:06:00 Name: BRIAN RANDHAWA [facility] : 1965 Age/S: 53 / F [address] [place], [place] [address] Unit #: [id number] Loc: Joni [id number] Phys: Raphael Fonseca MD Acct: [id number] Dis Date: Status: ADM IN PHONE #: [phone] Exam Date: 02/22/2019 0856 FAX #: [phone] Reason: SAH EXAMS: CPT CODE: [id number] DOP TRANSCRANIAL COMP 13265 Transcranial Doppler HISTORY: Subarachnoid hemorrhage. COMPARISON: 02/21/2019 FINDINGS: POSTERIOR FOSSA: PSV (cm/sec) MFV (cm/sec) Basilar artery: Not visualized Right vertebral artery: Not visualized Left vertebral artery: 146 70 RIGHT: PSV (cm/sec) MFV (cm/sec) Middle cerebral artery: 340 189 Anterior cerebral artery: Not visualizedLindegaard Ratio = 2.3 LEFT: PSV (cm/sec) MFV (cm/sec) Middle cerebral artery: 178 93 Anterior cerebral artery: 185 99 Lindegaard Ratio = 1.43 IMPRESSION: 1. Decreasing severe vasospasm in right MCA. 2. No vasospasm in left MCA. 3. Nonvisualization of posterior circulation. End Impression MCA: Severity of PSV (cm/sec) MFV (cm/sec) Lindegaard Ratio vasospasm Mild 200-250 120-150 3-4.5 Moderate 250-300 150-200 4.5-6.0 Severe >300 >200 >6 PARTS SALESMAN and GERRI: Vessel PSV (cm/sec) MFV (cm/sec) PAGE 1 Signed Report (CONTINUED) Name: BRIAN RANDHAWA : 1965 Age/S: 53 / F [address] [place] [address] Unit #: [id number] Loc: CARLINE [place]ones [id number] Phys: Rapahel Fonseca MD Acct: [id number] Dis Date: Status: ADM IN PHONE #: [phone] Exam Date: 02/22/2019855 FAX #: [phone] Reason: SAH EXAMS: CPT CODE: [id number] DOP TRANSCRANIAL COMP 31297 <Continued> PARTS SALESMAN >120 >85 GERRI >120 >80 SL: [id number] at 0906 Reported and signed by: Baldemar Carey M.D. 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 PROCEDURE: Multiple axial images from the skull base to the skull vertex were obtained without contrast. Coronal and sagittal reconstructed images were performed CT imaging performed at this location utilizes radiation dose optimization techniques which include one or more of the following: -Automated exposure control -Adjustment of the mA and/or kV according to patient size -Use of iterative reconstruction technique CT Radiation Dose DLP 1119.8 mGy-cm Comparison is made to 02/17/2019. FINDINGS: Right lateral craniotomy defect is unchanged. The amount of pneumocephalus and scalp gas is decreased. Aneurysm clip near the distalright ICA is unchanged. Anterior medial right frontal hemorrhage is measures 2.2 x 2.0 x 1.3 cm (craniocaudad by AP by transverse), previously 2.6 x 2.7 x 1.4 cm. The hypodense area in the inferior medial right frontal lobe has increased. Decreased density in the right temporal lobe is unchanged. Small volume intraventricular hemorrhage is unchanged, however there isnow mild ventriculomegaly. Leftward midline shift previously measured 6 mm and currently measures 1 mm. No new hemorrhage is present. The visualized mastoid air cells are clear. There is no paranasal sinus air-fluid level. IMPRESSION: 1. Hypodense area in the anterior inferior right frontal lobe has increased. This may represent ischemia. 2. Stable edematous changes in right temporal lobe after right lateral craniotomy defect. 3. Resolving pneumocephalus. 4. Decreasing right frontal parenchymal hematoma. 5. Development of mild ventriculomegaly likely due to small volume intraventricular hemorrhage. SL: [id number] PAGE 1 Signed Report (CONTINUED) Name: BRIAN RANDHAWA [facility] : 1965 Age/S: 53 / F [address] [place] [address] Unit #: [id number] Loc: [place] [address] Phys: Penelope,Juneight NETWORK SYSTEMS ANALYST Acct: [id number] Dis Date: Status: ADM IN PHONE #: [phone] Exam Date: 02/22/2019339 FAX #: Reason: sah EXAMS: CPT CODE: [id number] CT HEAD/BRAIN W/O CONT 37201 <Continued> at 0800 Reported and signed by: Baldemar Carey M.D. CC: Veronica Negrete NETWORK SYSTEMS ANALYST; Raphael Goldman MD Technologist:Baldemar Palafox, RT(R)(CT) CTDI: DLP: Trnscb Date/Time: 02/22/2019 (0800) [id number] Orig Print D/T: S: 02/22/2019 (0804) PAGE 2 Signed ReportCBC W/AUTO [id number] 07:43:00 Test Item Value Reference Range Interpretation Comments WHITE BLOOD CELL (test code = 8.59 x10 3/uL 4.5-11.0 N WBC) RED BLOOD CELL (test code = 3.71 x10 6/uL 3.54-5.02 N RBC) HEMOGLOBIN (test code = HGB) 9.5 g/dL 11.0-15.0 L HEMATOCRIT (test code = HCT) 32.2 % 33.0-45.0 L MEAN CELL VOLUME (test code = 86.8 fL 81.0-99.0 N MCV) MEAN CELL HGB (test code = MCH) 25.6 pg 27.0-33.0 L MEAN CELL HGB CONCETRATION 29.5 g/dL 33.0-37.0 L (test code = MCHC) RED CELL DISTRIBUTION WIDTH CV 17.0 % 11.5-14.5 H (test code = RDW) RED CELL DISTRIBUTION WIDTH SD 54.1 fL 37.0-54.0 H (test code = RDW-SD) PLATELET COUNT (test code = 337 x10 3/uL 150-400 N PLT) MEAN PLATELET VOLUME (test code 11.5 fL 7.0-9.0 H = MPV) NEUTROPHIL % (test code = NT%) % 56.0-77.0 LYMPHOCYTE % (test code = LY%) % 14.0-32.0 NEUTROPHIL # (test code = NT#) x10 3/uL 2.0-7.6 LYMPHOCYTE # (test code = LY#) x10 3/uL 1.0-3.8 MANUAL DIFF REQUIRED (test code = MDIFF) BASIC METABOLIC [id number] 07:35:00 Test Item Value Reference Range Interpretation Comments SODIUM (test code = NA) 147 mEq/L 134-147 N POTASSIUM (test code = 3.4 mEq/L 3.4-5.0 N K) CHLORIDE (test code = 116 mEq/L 100-108 H CL) CARBON DIOXIDE (test 23 mEq/L 21-33 N code = CO2) ANION GAP (test code = 11 0-20 N GAP) GLUCOSE (test code = 114 mg/dL 70-110 H GLU) BLOOD UREA NITROGEN 12 mg/dL 7-18 N (test code = BUN) GLOMERULAR FILTRATION 88.2 90-95 L Units of measure = RATE (test code = GFR) ml/mi n/1.73 m2 CREATININE (test code = 0.7 mg/dL 0.6-1.3 CREAT) CALCIUM (test code = 8.4 mg/dL 8.0-10.5 N CA) [id number] 07:35:00 Test Item Value Reference Range Interpretation Comments MAGNESIUM (test code = MAG) 2.10 mg/dL 1.8-2.4 N [id number] 21:06:00 Test Item Value Reference Range Interpretation Comments GLUBED (test code = 124 MG/DL 70-110 H Performe d by certified GLUBED) 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 [facility] [id number] 11:27:00 Test Item Value Reference Range Interpretation Comments GLUBED (test code = 80 MG/DL 70-110 N Performe d by certified GLUBED) 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 [facility] - DOP TRANSCRANIAL [id number] 10:12:00 Name: BRIAN RANDHAWA [facility] : 1965 Age/S: 53 / F [address] [place] [address] Unit #: [id number] Loc: [place] [id number] Phys: Raphael Fonseca MD Acct: [id number] Dis Date: Status: ADM IN PHONE #: [phone] Exam Date: 02/21/2019829 FAX #: [phone] Reason: SAH EXAMS: CPT CODE: [id number] DOP TRANSCRANIAL COMP 11484 Transcranial Doppler HISTORY: Subarachnoid hemorrhage. COMPARISON: 02/18/2018 FINDINGS: POSTERIOR FOSSA: PSV (cm/sec) MFV (cm/sec) Basilar artery: 183 103 Right vertebral artery: Not visualized Left vertebral artery: 216 131 RIGHT: PSV (cm/sec) MFV (cm/sec) Middle cerebral artery: 345 193 Anterior cerebral artery: 208 112 Lindegaard Ratio = 2.57 LEFT: PSV (cm/sec) MFV (cm/sec) Middle cerebral artery: 204 107 Anterior cerebral artery: 215 126 Lindegaard Ratio = 1.01 IMPRESSION: 1. Decreasing severe vasospasm in right middle cerebral artery. 2. Decreasing mild vasospasm in left middle cerebral artery. End Impression MCA: Severity of PSV (cm/sec) MFV (cm/sec) Lindegaard Ratio vasospasm Mild 200-250 120-150 3-4.5 Moderate 250-300 150-200 4.5-6.0 Severe >300 >200 >6 PARTS SALESMAN and GERRI: Vessel PSV (cm/sec) MFV (cm/sec) PAGE 1 Signed Report (CONTINUED) Name: BRIAN RANDHAWA [facility] Ambreen Villagomez : 1965 Age/S: 53 / F [address] [place] [address] Unit #: [id number] Loc: [place] [address] Phys: Raphael Fonseca MD Acct: [id number] Dis Date: Status: ADM IN PHONE #: [phone] Exam Date: 02/21/2019 0855 FAX #: [phone] Reason: SAH EXAMS: CPT CODE: [id number] DOP TRANSCRANIAL COMP 31825 <Continued> PARTS SALESMAN >120 >85 GERRI >120 >80 SL: [id number] at 1012 Reported and signed by: Baldemar Carey M.D. CC: Raphael Fonseca MD Technologist: Yelena Whalen Trnscb Date/Time: 02/21/2019 (101) [id number] Orig Print D/T: S: 02/21/2019 (1015) Probe: PAGE 2 Signed ReportCOMPREHENSIVE METABOLIC PANEL 2019-02-21 07:21:00 Test Item Value Reference Range Interpretation Comments SODIUM (test code = NA) 150 mEq/L 134-147 H POTASSIUM (test code = 3.5 mEq/L 3.4-5.0 N K) CHLORIDE (test code = 118 mEq/L 100-108 H CL) CARBON DIOXIDE (test 25 mEq/L 21-33 N code = CO2) ANION GAP (test code = 11 0-20 N GAP) GLUCOSE (test code = 115 mg/dL 70-110 H GLU) BLOOD UREA NITROGEN 16 mg/dL 7-18 (test code = BUN) GLOMERULAR FILTRATION 52.4 90-95 L Units of measure = RATE (test code = GFR) ml/mi n/1.73 m2 CREATININE (test code = 1.1 mg/dL 0.6-1.3 CREAT) TOTAL PROTEIN (test 5.9 g/dL 6.4-8.2 L code = PROT) ALBUMIN (test code = 2.20 g/dL 3.4-5.0 L ALB) CALCIUM (test code = 8.3 mg/dL 8.0-10.5 N CA) BILIRUBIN TOTAL (test 0.3 MG/DL <1.5 N code = BILT) SGOT/AST (test code = 18 IUnit/L 15-37 N AST) SGPT/ALT (test code = 27 IUnit/L 15-65 N ALT) ALKALINE PHOSPHATASE 81 IUnit/L 20-125 N TOTAL (test code = ALKP) [id number] 07:21:00 Test Item Value Reference Range Interpretation Comments PHOSPHOROUS (test code = PHOS) 3.4 MG/DL 2.5-4.9 N [id number] 07:21:00 Test Item Value Reference Range Interpretation Comments MAGNESIUM (test code = MAG) 2.10 mg/dL 1.8-2.4 N COMPREHENSIVE METABOLIC [id number] 07:15:00 Test Item Value Reference Range Interpretation Comments SODIUM (test code = NA) 150 mEq/L 134-147 H POTASSIUM (test code = K) 3.5 mEq/L 3.4-5.0 N CHLORIDE (test code = CL) 118 mEq/L 100-108 H CARBON DIOXIDE (test code = CO2) 25 mEq/L 21-33 N ANION GAP (test code = GAP) 11 0-20 N GLUCOSE (test code = GLU) 115 mg/dL 70-110 H BLOOD UREA NITROGEN (test code = 16 mg/dL 7-18 BUN) GLOMERULAR FILTRATION RATE (test 90-95 code = GFR) CREATININE (test code = CREAT) mg/dL 0.6-1.3 TOTAL PROTEIN (test code = PROT) g/dL 6.4-8.2 ALBUMIN (test code = ALB) g/dL 3.4-5.0 CALCIUM (test code = CA) 8.3 mg/dL 8.0-10.5 N BILIRUBIN TOTAL (test code = BILT) MG/DL <1.5 SGOT/AST (test code = AST) IUnit/L 15-37 SGPT/ALT (test code = ALT) IUnit/L 15-65 ALKALINE PHOSPHATASE TOTAL (test IUnit/L 20-125 code = ALKP) [id number] 07:15:00 Test Item Value Reference Range Interpretation Comments PHOSPHOROUS (test code = PHOS) MG/DL 2.5-4.9 [id number] 07:15:00 Test Item Value Reference Range Interpretation Comments MAGNESIUM (test code = MAG) mg/dL 1.8-2.4 CBC W/AUTO [id number] 06:45:00 Test Item Value Reference Range Interpretation Comments WHITE BLOOD CELL (test code = 8.86 x10 3/uL 4.5-11.0 N WBC) RED BLOOD CELL (test code = 3.52 x10 6/uL 3.54-5.02 L RBC) HEMOGLOBIN (test code = HGB) 9.0 g/dL 11.0-15.0 L HEMATOCRIT (test code = HCT) 30.6 % 33.0-45.0 L MEAN CELL VOLUME (test code = 86.9 fL 81.0-99.0 N MCV) MEAN CELL HGB (test code = MCH) 25.6 pg 27.0-33.0 L MEAN CELL HGB CONCETRATION 29.4 g/dL 33.0-37.0 L (test code = MCHC) RED CELL DISTRIBUTION WIDTH CV 17.1 % 11.5-14.5 H (test code = RDW) RED CELL DISTRIBUTION WIDTH SD 54.2 fL 37.0-54.0 H (test code = RDW-SD) PLATELET COUNT (test code = 348 x10 3/uL 150-400 N PLT) MEAN PLATELET VOLUME (test code 11.2 fL 7.0-9.0 H = MPV) NEUTROPHIL % (test code = NT%) 74.1 % 56.0-77.0 N IMMATURE GRANULOCYTE % (test 0.3 % 0.0-2.0 N code = IG%) LYMPHOCYTE % (test code = LY%) 13.5 % 14.0-32.0 L MONOCYTE % (test code = MO%) 6.5 % 4.8-9.0 N EOSINOPHIL % (test code = EO%) 5.0 % 0.3-3.7 H BASOPHIL % (test code = BA%) 0.6 % 0.0-2.0 N NUCLEATED RBC % (test code = 0.0 % 0-0 N NRBC%) NEUTROPHIL # (test code = NT#) 6.56 x10 3/uL 2.0-7.6 N IMMATURE GRANULOCYTE # (test 0.03 x10 3/uL 0.00-0.03 N code = IG#) LYMPHOCYTE # (test code = LY#) 1.20 x10 3/uL 1.0-3.8 N MONOCYTE # (test code = MO#) 0.58 x10 3/uL 0.1-0.8 N EOSINOPHIL # (test code = EO#) 0.44 x10 3/uL 0.0-0.2 H BASOPHIL # (test code = BA#) 0.05 x10 3/uL 0.0-0.2 N NUCLEATED RBC # (test code = 0.00 x10 3/uL 0.0-0.1 N NRBC#) MANUAL DIFF REQUIRED (test code NO = MDIFF) [id number] 20:58:00 Test Item Value Reference Range Interpretation Comments GLUBED (test code = 126 MG/DL 70-110 H Performe d by certified GLUBED) 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 [facility] [id number] 16:34:00 Test Item Value Reference Range Interpretation Comments GLUBED (test code = 127 MG/DL 70-110 H Performe d by certified GLUBED) 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 [facility] [id number] 16:34:00 Test Item Value Reference Range Interpretation Comments GLUBED (test code = 120 MG/DL 70-110 H Performe d by certified GLUBED) 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 [facility] [id number] 08:52:00 Test Item Value Reference Range Interpretation Comments GLUBED (test code = 118 MG/DL 70-110 H Performe d by certified GLUBED) 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 [facility] COMPREHENSIVE METABOLIC [id number] 06:55:00 Test Item Value Reference Range Interpretation Comments SODIUM (test code = NA) 147 mEq/L 134-147 N POTASSIUM (test code = 3.5 mEq/L 3.4-5.0 N K) CHLORIDE (test code = 116 mEq/L 100-108 H CL) CARBON DIOXIDE (test 26 mEq/L 21-33 N code = CO2) ANION GAP (test code = 9 0-20 N GAP) GLUCOSE (test code = 148 mg/dL 70-110 H GLU) BLOOD UREA NITROGEN 10 mg/dL 7-18 N (test code = BUN) GLOMERULAR FILTRATION 88.2 90-95 L Units of measure = RATE (test code = GFR) ml/mi n/1.73 m2 CREATININE (test code = 0.7 mg/dL 0.6-1.3 N CREAT) TOTAL PROTEIN (test 6.6 g/dL 6.4-8.2 N code = PROT) ALBUMIN (test code = 2.30 g/dL 3.4-5.0 L ALB) CALCIUM (test code = 8.6 mg/dL 8.0-10.5 N CA) BILIRUBIN TOTAL (test 0.3 MG/DL <1.5 N code = BILT) SGOT/AST (test code = 19 IUnit/L 15-37 N AST) SGPT/ALT (test code = 25 IUnit/L 15-65 N ALT) ALKALINE PHOSPHATASE 81 IUnit/L 20-125 N TOTAL (test code = ALKP) [id number] 06:55:00 Test Item Value Reference Range Interpretation Comments PHOSPHOROUS (test code = PHOS) 3.1 MG/DL 2.5-4.9 [id number] 06:55:00 Test Item Value Reference Range Interpretation Comments MAGNESIUM (test code = MAG) 2.10 mg/dL 1.8-2.4 N CBC W/AUTO [id number] 06:40:00 Test Item Value Reference Range Interpretation Comments WHITE BLOOD CELL (test code = 11.61 x10 3/uL 4.5-11.0 H WBC) RED BLOOD CELL (test code = 3.71 x10 6/uL 3.54-5.02 N RBC) HEMOGLOBIN (test code = HGB) 9.8 g/dL 11.0-15.0 L HEMATOCRIT (test code = HCT) 31.8 % 33.0-45.0 L MEAN CELL VOLUME (test code = 85.7 fL 81.0-99.0 N MCV) MEAN CELL HGB (test code = 26.4 pg 27.0-33.0 L MCH) MEAN CELL HGB CONCETRATION 30.8 g/dL 33.0-37.0 L (test code = MCHC) RED CELL DISTRIBUTION WIDTH CV 17.2 % 11.5-14.5 H (test code = RDW) RED CELL DISTRIBUTION WIDTH SD 53.8 fL 37.0-54.0 N (test code = RDW-SD) PLATELET COUNT (test code = 358 x10 3/uL 150-400 N PLT) MEAN PLATELET VOLUME (test 11.1 fL 7.0-9.0 H code = MPV) NEUTROPHIL % (test code = NT%) 81.8 % 56.0-77.0 H IMMATURE GRANULOCYTE % (test 0.4 % 0.0-2.0 N code = IG%) LYMPHOCYTE % (test code = LY%) 7.5 % 14.0-32.0 L MONOCYTE % (test code = MO%) 5.8 % 4.8-9.0 N EOSINOPHIL % (test code = EO%) 4.0 % 0.3-3.7 H BASOPHIL % (test code = BA%) 0.5 % 0.0-2.0 N NUCLEATED RBC % (test code = 0.0 % 0-0 N NRBC%) NEUTROPHIL # (test code = NT#) 9.49 x10 3/uL 2.0-7.6 H IMMATURE GRANULOCYTE # (test 0.05 x10 3/uL 0.00-0.03 H code = IG#) LYMPHOCYTE # (test code = LY#) 0.87 x10 3/uL 1.0-3.8 L MONOCYTE # (test code = MO#) 0.67 x10 3/uL 0.1-0.8 N EOSINOPHIL # (test code = EO#) 0.47 x10 3/uL 0.0-0.2 H BASOPHIL # (test code = BA#) 0.06 x10 3/uL 0.0-0.2 N NUCLEATED RBC # (test code = 0.00 x10 3/uL 0.0-0.1 N NRBC#) MANUAL DIFF REQUIRED (test NO code = MDIFF) [id number] 21:53:00 Test Item Value Reference Range Interpretation Comments GLUBED (test code = 138 MG/DL 70-110 H Performe d by certified GLUBED) 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 [facility] [id number] 16:10:00 Test Item Value Reference Range Interpretation Comments POTASSIUM (test code = K) 3.4 mEq/L 3.4-5.0 N [id number] 15:51:00 Test Item Value Reference Range Interpretation Comments GLUBED (test code = 118 MG/DL 70-110 H Performe d by certified GLUBED) 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 [facility] [id number] 12:27:00 Test Item Value Reference Range Interpretation Comments GLUBED (test code = 132 MG/DL 70-110 H Performe d by certified GLUBED) 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 [facility] COMPREHENSIVE METABOLIC [id number] 07:29:00 Test Item Value Reference Range Interpretation Comments SODIUM (test code = NA) 147 mEq/L 134-147 N POTASSIUM (test code = 3.4 mEq/L 3.4-5.0 N K) CHLORIDE (test code = 116 mEq/L 100-108 H CL) CARBON DIOXIDE (test 24 mEq/L 21-33 N code = CO2) ANION GAP (test code = 10 0-20 N GAP) GLUCOSE (test code = 136 mg/dL 70-110 H GLU) BLOOD UREA NITROGEN 9 mg/dL 7-18 N (test code = BUN) GLOMERULAR FILTRATION 105.4 90-95 H Units of measure = RATE (test code = GFR) ml/mi n/1.73 m2 CREATININE (test code = 0.6 mg/dL 0.6-1.3 N CREAT) TOTAL PROTEIN (test 6.7 g/dL 6.4-8.2 N code = PROT) ALBUMIN (test code = 2.60 g/dL 3.4-5.0 L ALB) CALCIUM (test code = 9.0 mg/dL 8.0-10.5 N CA) BILIRUBIN TOTAL (test 0.3 MG/DL <1.5 code = BILT) SGOT/AST (test code = 15 IUnit/L 15-37 AST) SGPT/ALT (test code = 18 IUnit/L 15-65 N ALT) ALKALINE PHOSPHATASE 90 IUnit/L 20-125 N TOTAL (test code = ALKP) [id number] 07:29:00 Test Item Value Reference Range Interpretation Comments PHOSPHOROUS (test code = PHOS) 1.9 MG/DL 2.5-4.9 L [id number] 07:29:00 Test Item Value Reference Range Interpretation Comments MAGNESIUM (test code = MAG) 2.00 mg/dL 1.8-2.4 N CBC W/AUTO [id number] 07:13:00 Test Item Value Reference Range Interpretation Comments WHITE BLOOD CELL (test code = 13.64 x10 3/uL 4.5-11.0 H WBC) RED BLOOD CELL (test code = 4.03 x10 6/uL 3.54-5.02 N RBC) HEMOGLOBIN (test code = HGB) 10.4 g/dL 11.0-15.0 L HEMATOCRIT (test code = HCT) 35.3 % 33.0-45.0 N MEAN CELL VOLUME (test code = 87.6 fL 81.0-99.0 N MCV) MEAN CELL HGB (test code = 25.8 pg 27.0-33.0 L MCH) MEAN CELL HGB CONCETRATION 29.5 g/dL 33.0-37.0 L (test code = MCHC) RED CELL DISTRIBUTION WIDTH CV 17.2 % 11.5-14.5 H (test code = RDW) RED CELL DISTRIBUTION WIDTH SD 55.1 fL 37.0-54.0 H (test code = RDW-SD) PLATELET COUNT (test code = 352 x10 3/uL 150-400 N PLT) MEAN PLATELET VOLUME (test 11.6 fL 7.0-9.0 H code = MPV) NEUTROPHIL % (test code = NT%) 83.3 % 56.0-77.0 H IMMATURE GRANULOCYTE % (test 0.6 % 0.0-2.0 N code = IG%) LYMPHOCYTE % (test code = LY%) 8.7 % 14.0-32.0 L MONOCYTE % (test code = MO%) 5.6 % 4.8-9.0 N EOSINOPHIL % (test code = EO%) 1.3 % 0.3-3.7 N BASOPHIL % (test code = BA%) 0.5 % 0.0-2.0 N NUCLEATED RBC % (test code = 0.0 % 0-0 N NRBC%) NEUTROPHIL # (test code = NT#) 11.35 x10 3/uL 2.0-7.6 H IMMATURE GRANULOCYTE # (test 0.08 x10 3/uL 0.00-0.03 H code = IG#) LYMPHOCYTE # (test code = LY#) 1.19 x10 3/uL 1.0-3.8 N MONOCYTE # (test code = MO#) 0.77 x10 3/uL 0.1-0.8 N EOSINOPHIL # (test code = EO#) 0.18 x10 3/uL 0.0-0.2 N BASOPHIL # (test code = BA#) 0.07 x10 3/uL 0.0-0.2 N NUCLEATED RBC # (test code = 0.00 x10 3/uL 0.0-0.1 N NRBC#) MANUAL DIFF REQUIRED (test NO code = MDIFF) [id number] 06:08:00 Test Item Value Reference Range Interpretation Comments GLUBED (test code = 128 MG/DL 70-110 H Performe d by certified GLUBED) 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 [facility] [id number] 23:26:00 Test Item Value Reference Range Interpretation Comments GLUBED (test code = 136 MG/DL 70-110 H Performe d by certified GLUBED) 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 [facility] [id number] 21:29:00 Test Item Value Reference Range Interpretation Comments POTASSIUM (test code = K) 3.4 mEq/L 3.4-5.0 N [id number] 18:21:00 Test Item Value Reference Range Interpretation Comments POTASSIUM (test code = K) 3.4 mEq/L 3.4-5.0 N - DOP TRANSCRANIAL [id number] 12:48:00 Name: BRIAN RANDHAWA [facility] : 1965 Age/S: 53 / F [address] [place] [address] Blvd Unit #: [id number] Loc: [place] [id number] Phys: Raphael Fonseca MD Acct: [id number] Dis Date: Status: ADM IN PHONE #: [phone] Exam Date: 02/18/2019954 FAX #: [phone] Reason: SAH EXAMS: CPT CODE: [id number] DOP TRANSCRANIAL COMP 72854 Transcranial Doppler HISTORY: Subarachnoid hemorrhage. COMPARISON: None FINDINGS: POSTERIOR FOSSA: PSV (cm/sec) MFV (cm/sec) Basilar artery: 195 102 Right vertebral artery: 200 101 Left vertebral artery: 208 114 RIGHT: PSV (cm/sec) MFV (cm/sec) Middle cerebral artery: 456 241 Anterior cerebral artery: 242 113 Lindegaard Ratio = 3.29 LEFT: PSV (cm/sec) MFV (cm/sec) Middle cerebral artery: 292 157 Anterior cerebral artery: 296 140 Lindegaard Ratio = 1.48 IMPRESSION: 1. Severe vasospasm of the right middle cerebral artery. 2. Moderate vasospasm of the left middle cerebral artery. 3. Vasospasm in the bilateral anterior cerebral arteries. End Impression MCA: Severity ofPSV (cm/sec) MFV (cm/sec) Lindegaard Ratio vasospasm Mild 200-250 120-150 3-4.5 Moderate 250-300 150-200 4.5-6.0 Severe >300 >200 >6 PARTS SALESMAN and GERRI: PAGE 1 Signed Report (CONTINUED) Name: BRIAN RANDHAWA [facility] [place] : 1965 Age/S: 53 / F[address] Unit #: [id number] Loc: [place] [address] Phys: Raphael Fonseca MD Acct: [id number] Date: Status: ADM IN PHONE #: [phone] Exam Date: 02/18/2019954 FAX #: [phone] Reason: SAH EXAMS: CPT CODE: [id number] DOP TRANSCRANIAL COMP 97493 <Continued> Vessel PSV (cm/sec) MFV (cm/sec) PARTS SALESMAN >120 >85 GERRI >120 &gt ;80 Doppler at 8356 Reported and signed by: Kvng Minaya M.D. CC: Raphael Fonseca MD Technologist: Yelena Whalen TrnscbDate/Time: 02/18/2019 (8788) [id number] Orig Print D/T: S: 02/18/2019 (7937) Probe: PAGE 2 Signed [id number] 12:29:00 Test Item Value Reference Range Interpretation Comments GLUBED (test code = 124 MG/DL 70-110 H Performe d by certified GLUBED) 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 [facility] BASIC METABOLIC [id number] 05:34:00 Test Item Value Reference Range Interpretation Comments SODIUM (test code = NA) 148 mEq/L 134-147 H POTASSIUM (test code = 3.3 mEq/L 3.4-5.0 L K) CHLORIDE (test code = 116 mEq/L 100-108 H CL) CARBON DIOXIDE (test 26 mEq/L 21-33 N code = CO2) ANION GAP (test code = 9 0-20 N GAP) GLUCOSE (test code = 140 mg/dL 70-110 H GLU) BLOOD UREA NITROGEN 8 mg/dL 7-18 N (test code = BUN) GLOMERULAR FILTRATION 105.4 90-95 H Units of measure = RATE (test code = GFR) ml/mi n/1.73 m2 CREATININE (test code = 0.6 mg/dL 0.6-1.3 N CREAT) CALCIUM (test code = 8.1 mg/dL 8.0-10.5 N CA) [id number] 05:34:00 Test Item Value Reference Range Interpretation Comments MAGNESIUM (test code = MAG) 1.90 mg/dL 1.8-2.4 N CBC W/AUTO [id number] 05:17:00 Test Item Value Reference Range Interpretation Comments WHITE BLOOD CELL (test code = 14.00 x10 3/uL 4.5-11.0 H WBC) RED BLOOD CELL (test code = 3.69 x10 6/uL 3.54-5.02 N RBC) HEMOGLOBIN (test code = HGB) 9.4 g/dL 11.0-15.0 L HEMATOCRIT (test code = HCT) 31.9 % 33.0-45.0 L MEAN CELL VOLUME (test code = 86.4 fL 81.0-99.0 N MCV) MEAN CELL HGB (test code = 25.5 pg 27.0-33.0 L MCH) MEAN CELL HGB CONCETRATION 29.5 g/dL 33.0-37.0 L (test code = MCHC) RED CELL DISTRIBUTION WIDTH CV 17.0 % 11.5-14.5 H (test code = RDW) RED CELL DISTRIBUTION WIDTH SD 53.9 fL 37.0-54.0 N (test code = RDW-SD) PLATELET COUNT (test code = 334 x10 3/uL 150-400 N PLT) MEAN PLATELET VOLUME (test 11.4 fL 7.0-9.0 H code = MPV) NEUTROPHIL % (test code = NT%) 79.0 % 56.0-77.0 H IMMATURE GRANULOCYTE % (test 0.6 % 0.0-2.0 N code = IG%) LYMPHOCYTE % (test code = LY%) 11.9 % 14.0-32.0 L MONOCYTE % (test code = MO%) 8.1 % 4.8-9.0 N EOSINOPHIL % (test code = EO%) 0.1 % 0.3-3.7 L BASOPHIL % (test code = BA%) 0.3 % 0.0-2.0 N NUCLEATED RBC % (test code = 0.0 % 0-0 N NRBC%) NEUTROPHIL # (test code = NT#) 11.07 x10 3/uL 2.0-7.6 H IMMATURE GRANULOCYTE # (test 0.08 x10 3/uL 0.00-0.03 H code = IG#) LYMPHOCYTE # (test code = LY#) 1.67 x10 3/uL 1.0-3.8 N MONOCYTE # (test code = MO#) 1.13 x10 3/uL 0.1-0.8 H EOSINOPHIL # (test code = EO#) 0.01 x10 3/uL 0.0-0.2 N BASOPHIL # (test code = BA#) 0.04 x10 3/uL 0.0-0.2 N NUCLEATED RBC # (test code = 0.00 x10 3/uL 0.0-0.1 N NRBC#) MANUAL DIFF REQUIRED (test NO code = MDIFF) [id number] 00:15:00 Test Item Value Reference Range Interpretation Comments GLUBED (test code = 145 MG/DL 70-110 H Performe d by certified GLUBED) 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 [facility] [id number] 18:31:00 Test Item Value Reference Range Interpretation Comments GLUBED (test code = 139 MG/DL 70-110 H Performe d by certified GLUBED) 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 [facility] - SP INT CAROTID ANGIO [id number] 14:48:00 FAX: Lev Lucas MD [phone] [place] [address]: ADM FAX: Jonny Rodriguez MD [phone] Name: BRIAN RANDHAWA [facility] : 1965 Age/S: 53/F [address] [place] [address] Unit #: [id number] Loc: [address] Phys: Lev Vegas MD Acct: [id number] Dis Date: Status: ADM IN PHONE #: Exam Date: 02/16/2019 1044 FAX #: Reason: SAH WITH RUPTURED A-COM ARTERY ANEURYSM EXAMS: CPT CODE: [id number] SP INT CAROTID ANGIO UNI [id number] PRE PROCEDURAL DIAGNOSIS: 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 Right femoral arteriotomy and placement of 5-Finnish sheath 2, catheterization of right common carotid artery followed by angiogram 3 Selective catheterization of right internal carotid artery followed by angiogram 4 . Catheterization of left common carotid artery followed by angiogram 5. . Selective catheterization of left internal carotid artery follow-up angiogram 6 . Left vertebral artery angiogram 7. Right femoral Artery angiogram . 8. 3D rotational angiogram via catheterization of the left internal carotid artery. 8. Vascular closure seen Angio-Seal ANESTHESIA: 10 cc 1% lidocaine at right femoral region. SEDATION TIME: Continuous cardiopulmonary monitoring was performed throughout the procedure by a dedicated nurse, at the patient was electively intubated for the procedure and started on IV anesthetic drug . APPROACH: right femoral artery using modified Seldinger technique with a micropuncture set. 5-Finnish sheath placed. CONTRAST: 132 cc . FLUORO: Time 10.3 min, A plane - 791 mGy, B Plane - 75086 mGy PRIMARY SURGEON: say Jordan MD ESTIMATED BLOOD LOSS: 30 cc . INFORMED CONSENT: The procedures risks, benefits, and alternatives were discussed with the and patient . The patient agreed toproceed. All questions were answered. INDICATION: The patient is a 53-year-old femalewho came to the ER PAGE 1 Signed Report (CONTINUED) FAX: Lev Lucas MD [phone] [place]: St: ADM FAX: Jonny Rodriguez MD [phone] Name: RBIAN RANDHAWA [facility] : 1965 Age/S: 53/F [address] [place] [address] Unit #: [id number] Loc: [place] [address] Phys: Lev Vegas MD Acct: [id number] Dis Date: Status: ADM IN PHONE #: Exam Date: 02/16/2019 1044 FAX #: Reason: SAH WITH RUPTURED A-COM ARTERY ANEURYSM EXAMS: CPT CODE: [id number] SP INT CAROTID ANGIO UNI [id number] <Continued> after experiencing a severe headache and passing out in the middle of the night. Patient was brought to the hospital where CT had revealed massive intraparenchymal hemorrhage in the right frontal lobe along with some component of subarachnoid hemorrhage. CTA had revealed and 8, aneurysm almost 5 mm. The patient was transferred to [place] for possible intervention. Hunton Goel 2 Cortez grade 2 TECHNIQUE: After informed consent the patient was brought to the angiography suite and both groin regions were prepped and draped in the usual sterile fashion. The patient demographics, procedure to be performed, patient position,and equipment to be used were confirmed between the performing physicians and support team. The skin at the entry site was anesthetized using 10 cc of lidocaine and the right common femoral artery was entered using modified Seldinger technique. A 5 F sheath was placed over a 0.035" PTFE floppy wire using modified Seldinger technique with imaging of the common iliac artery confirming sheath placement. A 5 F diagnostic catheter in conjunction with a.035" angled Glidewire was used to selectively catheterize the right and left common, right and left internal c carotid arteries, left vertebral artery, . After each vessel was selected multiple AP, lateral, oblique and magnified angiographic runs were performed with filming over the head and neck. All catheters were removed following confirmation of parent vessel integrity. Hemostasis was attained at the entry site by Angio-Seal.... There were no complications during or immediately after the procedure. FINDINGS: RIGHT COMMON CAROTID: The right common carotid artery was selectively catheterized. The carotid bifurcation is located at the C5-C6 level. There is no significant stenosis at the carotid bifurcation. RIGHT INTERNAL CAROTID: The right internal carotid artery was selectively catheterized. The upper cervical, petrous, cavernous, and supraclinoid portions of the internal carotid artery opacify normally. The ophthalmic artery opacifies normally. The middle cerebral artery and anterior cerebral artery opacify normally. There is flash-filling of the anterior communicating artery and contralateral distal A2 distribution. There are normal arterial, capillary and venous phases. PAGE 2 Signed Report(CONTINUED) FAX: Lev Lucas MD [phone] [place]: St: ADM FAX: Jonny Rodriguez MD [phone] Name: BRIAN RANDHAWA [facility] : 1965 Age/S: 53/F [address] [place] [address] Blvd Unit #: [id number] Loc: [place] [place] [address] Phys: Lev Vegas MD Acct: [id number] Dis Date: Status: ADM IN PHONE#: Exam Date: 02/16/2019 1044 FAX #: Reason: SAH WITH RUPTURED A-COM ARTERY ANEURYSM EXAMS: CPT CODE: [id number] SP INT CAROTID ANGIO UNI [id number] <Continued> No evidence of vasculitis, aneurysm, branch block or AV shunting is seen. There are no areas with absent capillary blush. Major venous sinuses are patent. The right external carotid artery and its branches are patent. No significant stenosis, aneurysm, or arteriovenous shunting is seen. LEFT COMMON CAROTID: The left common carotid artery was se lectively catheterized. The carotid bifurcation is located at the C5-C6 level. There isno significant stenosis at the carotid bifurcation. LEFT INTERNAL CAROTID: The left internal carotid artery was selectively catheterized. The cervical, petrous, cavernous, andsupraclinoid portions of the internal carotid artery opacify normally. The ophthalmic artery opacifies normally. . Anterior cerebral artery appears to have normal flow the A1 segment seems to be pulmonary spasm. There is a saccular aneurysm at the anterior communicating area pointing anteriorly. Contralateral flow in the right A2 is seen which seems to be in spasm but decreased caliber. The flow in the callosal marginal arteries appear to be robust. The middlecerebral artery appears to have robust flow without any evidence of aneurysmal dilatation the inferior division branches in the distant bifurcating branches appear to opacify normallyThere are normal arterial, capillary and venous phases. No evidence of vasculitis, aneurysm, branch block or AV shunting is seen. There are no areas with absent capillary blush. Majorvenous sinuses are patent. The left external carotid artery and its branches are patent. No significant stenosis, aneurysm, or arteriovenous shunting is seen. LEFT VERTEBRAL AR CHIVO: The left vertebral artery was selectively catheterized. The distal V2, V3, and V4 segments of the left vertebral artery opacify normally. The left PICA opacifies normally. There is back-filling of the right distal vertebral artery and right PICA. The basilar artery, apex appears to be patulous with a spider web appearance. No definite aneurysmal dilatation. Theposterior cerebral arteries appear to fill distinctly with good flow. The PICA appears to be opacify normally . No evidence of vasculitis, aneurysm, arteriovenous shunting, or branchblock. There are no areas with absent capillary blush outside the right PICA distribution. Major venous sinuses are patent. . 3D ROTATIONAL ANGIOGRAM (head): Dueto the complex morphology of this PAGE 3 Signed Report(CONTINUED) FAX: Lev Lucas MD [phone] [place]: St: [facility] FAX: Jonny Rodriguez MD [phone] Name: BRIAN RANDHAWA [facility] : 1965 Age/S: 53/F [address] [place] [address] Blvd Unit #: [id number] Loc: [place] [address] Phys: Lev Vegas MD Acct: [id number] Dis Date: Status: ADM IN PHONE#: Exam Date: 02/16/2019 1044 FAX #: Reason: SAH WITH RUPTURED A-COM ARTERY ANEURYSM EXAMS: CPT CODE: [id number] SP INT CAROTID ANGIO UNI [id number] <Continued> aneurysm, a 3D rotational angiogram was required. This angiogram, distinctly acquired, reconstructed, and reviewed on a separate workstation, demonstrated 3D. The 7 x 4 mm aneurysm is seen originating from the anterior communicating area pointing superiorly. The neck of the aneurysm is relatively broad. The aneurysm has a complex morphology with multiple lobes. The contralateral A2 appears to be in spasm. The ipsilateral A1 also appears to be spasm with decreased caliber. 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 The ipsilateral A1 and contralateral A2 appear to be in spasm due to the subarachnoid hemorrhage and right frontal hematoma. 2) no other area of aneurysmal dilatation, stenosis, AV malformation identified on this angiogram All the results were relayedto the family and all questions were answered in detail. ElectronicallySigned by Meek Jordan on 02/17/2019 at 144 Reported and signed by: Say Jordan M.D. CC: Lev Vegas MD; Jonny Chandra MD Technologist: Ally BLUE(R) Trnscrd Date/Time/By: 02/17/2019 (8536) : By: SJ Orig Print D/T: S: 02/17/2019 (2743) PAGE 4 Signed Report- SP INT CAROTID ANGIO [id number] 14:48:00 FAX: Lev Lucas MD [phone] [place]: St: ADM FAX: Jonny Rodriguez MD [phone] Name: BRIAN RANDHAWA [facility] : 1965 Age/S: 53/F [address] [place] [address] Blvd Unit #: [id number] Loc: [address] [place], [place] Phys: Lev Vegas MD Acct: [id number] Dis Date: Status: ADM IN PHONE #: Exam Date: 02/16/2019 1044 FAX #: Reason: SAH WITH RUPTURED A-COM ARTERY ANEURYSM EXAMS: CPT CODE: [id number] SP INT CAROTID ANGIO UNI [id number] PRE PROCEDURAL DIAGNOSIS: 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 Right femoral arteriotomy and placement of 5-Finnish sheath 2, catheterization of right common carotid artery followed by angiogram 3 Selective catheterization of right internal carotid artery followed by angiogram 4 . Catheterization of left common carotid artery followed by angiogram 5. . Selective catheterization of left internal carotid artery follow-up angiogram 6 . Left vertebral artery angiogram 7. Right femoral Artery angiogram . 8. 3D rotational angiogram via catheterization of the left internal carotid artery. 8. Vascular closure seen Angio-Seal ANESTHESIA: 10 cc 1% lidocaine at right femoral region. SEDATION TIME: Continuous cardiopulmonary monitoring was performed throughout the procedure by a dedicated nurse, at the patient was electively intubated for the procedure and started on IV anesthetic drug . APPROACH: right femoral artery using modified Seldinger technique with a micropuncture set. 5-Finnish sheath placed. CONTRAST: 132 cc . FLUORO: Time 10.3 min, A plane - 791 mGy, B Plane - 28361 mGy PRIMARY SURGEON: say Jordan MD ESTIMATED BLOOD LOSS: 30 cc . INFORMED CONSENT: The procedures risks, benefits, and alternatives were discussed with the and patient . The patient agreed toproceed. All questions were answered. INDICATION: The patient is a 53-year-old femalewho came to the ER PAGE 1 Signed Report (CONTINUED) FAX: Lev Lucas MD [phone] [place]: St: ADM FAX: Jonny Rodriguez MD [phone] Name: BRIAN RANDHAWA [facility] : 1965 Age/S: 53/F [address] [place] [address] Unit #: [id number] Loc: [address] [address] Phys: Lev Vegas MD Acct: [id number] Dis Date: Status: ADM IN PHONE #: Exam Date: 02/16/2019 1044 FAX #: Reason: SAH WITH RUPTURED A-COM ARTERY ANEURYSM EXAMS: CPT CODE: [id number] SP INT CAROTID ANGIO UNI 96578 <Continued> after experiencing a severe headache and passing out in the middle of the night. Patient was brought to the hospital where CT had revealed massive intraparenchymal hemorrhage in the right frontal lobe along with some component of subarachnoid hemorrhage. CTA had revealed and 8, aneurysm almost 5 mm. The patient was transferred to [place] for possible intervention. Hunton Goel 2 Cortez grade 2 TECHNIQUE: After informed consent the patient was brought to the angiography suite and both groin regions were prepped and draped in the usual sterile fashion. The patient demographics, procedure to be performed, patient position,and equipment to be used were confirmed between the performing physicians and support team. The skin at the entry site was anesthetized using 10 cc of lidocaine and the right common femoral artery was entered using modified Seldinger technique. A 5 F sheath was placed over a 0.035" PTFE floppy wire using modified Seldinger technique with imaging of the common iliac artery confirming sheath placement. A 5 F diagnostic catheter in conjunction with a.035" angled Glidewire was used to selectively catheterize the right and left common, right and left internal c carotid arteries, left vertebral artery, . After each vessel was selected multiple AP, lateral, oblique and magnified angiographic runs were performed with filming over the head and neck. All catheters were removed following confirmation of parent vessel integrity. Hemostasis was attained at the entry site by Angio-Seal.... There were no complications during or immediately after the procedure. FINDINGS: RIGHT COMMON CAROTID: The right common carotid artery was selectively catheterized. The carotid bifurcation is located at the C5-C6 level. There is no significant stenosis at the carotid bifurcation. RIGHT INTERNAL CAROTID: The right internal carotid artery was selectively catheterized. The upper cervical, petrous, cavernous, and supraclinoid portions of the internal carotid artery opacify normally. The ophthalmic artery opacifies normally. The middle cerebral artery and anterior cerebral artery opacify normally. There is flash-filling of the anterior communicating artery and contralateral distal A2 distribution. There are normal arterial, capillary and venous phases. PAGE 2 Signed Report(CONTINUED) FAX: Lev Lucas MD [phone] [place]: St: ADM FAX: Jonny Rodriguez MD [phone] Name: BRIAN RANDHAWA [facility] : 1965 Age/S: 53/F [address] [place] [address] Blvd Unit #: [id number] Loc: [place] [address] Phys: Lev Vegas MD Acct: [id number] Dis Date: Status: ADM IN PHONE#: Exam Date: 02/16/2019 1043 FAX #: Reason: SAH WITH RUPTURED A-COM ARTERY ANEURYSM EXAMS: CPT CODE: [id number] SP INT CAROTID ANGIO UNI [id number] <Continued> No evidence of vasculitis, aneurysm, branch block or AV shunting is seen. There are no areas with absent capillary blush. Major venous sinuses are patent. The right external carotid artery and its branches are patent. No significant stenosis, aneurysm, or arteriovenous shunting is seen. LEFT COMMON CAROTID: The left common carotid artery was se lectively catheterized. The carotid bifurcation is located at the C5-C6 level. There isno significant stenosis at the carotid bifurcation. LEFT INTERNAL CAROTID: The left internal carotid artery was selectively catheterized. The cervical, petrous, cavernous, andsupraclinoid portions of the internal carotid artery opacify normally. The ophthalmic artery opacifies normally. . Anterior cerebral artery appears to have normal flow the A1 segment seems to be pulmonary spasm. There is a saccular aneurysm at the anterior communicating area pointing anteriorly. Contralateral flow in the right A2 is seen which seems to be in spasm but decreased caliber. The flow in the callosal marginal arteries appear to be robust. The middlecerebral artery appears to have robust flow without any evidence of aneurysmal dilatation the inferior division branches in the distant bifurcating branches appear to opacify normallyThere are normal arterial, capillary and venous phases. No evidence of vasculitis, aneurysm, branch block or AV shunting is seen. There are no areas with absent capillary blush. Majorvenous sinuses are patent. The left external carotid artery and its branches are patent. No significant stenosis, aneurysm, or arteriovenous shunting is seen. LEFT VERTEBRAL AR CHIVO: The left vertebral artery was selectively catheterized. The distal V2, V3, and V4 segments of the left vertebral artery opacify normally. The left PICA opacifies normally. There is back-filling of the right distal vertebral artery and right PICA. The basilar artery, apex appears to be patulous with a spider web appearance. No definite aneurysmal dilatation. Theposterior cerebral arteries appear to fill distinctly with good flow. The PICA appears to be opacify normally . No evidence of vasculitis, aneurysm, arteriovenous shunting, or branchblock. There are no areas with absent capillary blush outside the right PICA distribution. Major venous sinuses are patent. . 3D ROTATIONAL ANGIOGRAM (head): Dueto the complex morphology of this PAGE 3 Signed Report(CONTINUED) FAX: Lev Lucas MD [phone] [place]: St: [facility] FAX: Jonny Rodriguez MD [phone] Name: BRIAN RANDHAWA [facility] : 1965 Age/S: 53/F [address] [facility] Unit #: [id number] Loc: [place], [place] [address] Phys: Lev Vegas MD Acct: [id number] Dis Date: Status: ADM IN PHONE#: Exam Date: 02/16/2019 1041 FAX #: Reason: SAH WITH RUPTURED A-COM ARTERY ANEURYSM EXAMS: CPT CODE: [id number] SP INT CAROTID ANGIO UNI 42658 <Continued> aneurysm, a 3D rotational angiogram was required. This angiogram, distinctly acquired, reconstructed, and reviewed on a separate workstation, demonstrated 3D. The 7 x 4 mm aneurysm is seen originating from the anterior communicating area pointing superiorly. The neck of the aneurysm is relatively broad. The aneurysm has a complex morphology with multiple lobes. The contralateral A2 appears to be in spasm. The ipsilateral A1 also appears to be spasm with decreased caliber. 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 The ipsilateral A1 and contralateral A2 appear to be in spasm due to the subarachnoid hemorrhage and right frontal hematoma. 2) no other area of aneurysmal dilatation, stenosis, AV malformation identified on this angiogram All the results were relayedto the family and all questions were answered in detail. ElectronicallySigned by Meek Jordan on 02/17/2019 at 1444 Reported and signed by: Say Jordan M.D. CC: Lev Vegas MD; Jonny Chandra MD Technologist: Ally Lemons RT(R) Trnscrd Date/Time/By: 02/17/2019 (7861) : By: SJ Orig Print D/T: S: 02/17/2019 (3216) PAGE 4 Signed Report- CT HEAD/BRAIN W/O [id number] 08:41:00 Name: BRIAN RANDHAWA : 1965 Age/S: 53 / F [address] [place] [address] Unit #: [id number] Loc: [place], [place] Phys: Cecile Negretedavis NETWORK SYSTEMS ANALYST Acct: [id number] Dis Date: Status: ADM IN PHONE #: [phone] Exam Date: 02/17/2019324 FAX #: [phone] Reason: post clipping aneurysm EXAMS: CPTCODE: [id number] CT HEAD/BRAIN W/O CONT 73639 Clinical Indication: Subarachnoid hemorrhage, post aneurysm clipping Comparison: Brain CT and CTA 02/16/2019 TECHNIQUE: CT images were obtained from the foramen magnum to the vertexwithout the use of intravenous contrast on a multidetector CT. Axial, coronal and sagittal reformats created. Total exam DLP: 964.8 mGy-cm. DLP means dose length product, a radiation dose metric that does not report individual patient dose, but is a reference value related to the radiation output of the scanner used for this exam. CT imaging performed at this location utilizes radiation dose optimization techniques which include one or more of the following: -Automated exposure control -Adjustment of the mA and/or kV according topatient size -Use of iterative reconstruction technique FINDINGS:New right pterional craniotomy and clipping of a right GERRI aneurysm compared to brain CT performed on 02/16/2019. There is expected postoperative pneumocephalus along the anterior frontal convexity and swelling of the right frontal/temporal scalp resulting in a 5 mm right to left midline shift. No new intracranial hemorrhage or large subacute infarction. The volume of right frontal parenchymal and right parafalcine subdural hemorrhage has improved compared to the initial brain CT, with residual subdural hematoma measuring approximately 1.3 cm in thickness. Again noted is a small volume of subarachnoid hemorrhage. Thereis intraventricular hemorrhage, centered in the right lateral ventricle, with slight dilatation of the temporal horns of the lateral ventricles. This finding is unchanged compared to priorimaging. If there is further concern for intracranial pathology or acute stroke,MRI of the brain may be performed for complete assessment. IMPRESSION: Expected postoperative changes after clipping of a right GERRI aneurysm. No progression of hydrocephalus, new intracranial hemorrhage or large PAGE 1 Signed Report (CONTINUED) Name: BRIAN RANDHAWA [facility] : 1965 Age/S: 53 / F [address] [place] [address] Unit #: [id number] Loc: [facility] [place] [address] Phys: PenelopeVeronica NETWORK SYSTEMS ANALYST Acct: [id number] Dis Date: Status: ADM IN PHONE #: [phone] Exam Date: 02/17/2019 032 FAX #: [phone] Reason: post clipping aneurysm EXAMS: CPT CODE: [id number] CT HEAD/BRAIN W/O CONT 13760 <Continued> subacute infarction compared to 02/16/2019. Continued follow-up recommended. SL: [id number] at 0841 Reported and signed by: Merlin Avila M.D. CC: Veronica Negrete NETWORK SYSTEMS ANALYST; Raphael Fonseca MD Technologist:RT Ramya(R)(CT) CTDI: DLP: Trnscb Date/Time: 02/17/2019 (840) [id number] Orig Print D/T:S: 02/17/2019 (843) PAGE 2 Signed ReportCBC W/AUTO [id number] 06:12:00 Test Item Value Reference Range Interpretation Comments WHITE BLOOD CELL 15.87 x10 3/uL 4.5-11.0 H (test code = WBC) RED BLOOD CELL (test 3.82 x10 6/uL 3.54-5.02 N code = RBC) HEMOGLOBIN (test code 9.9 g/dL 11.0-15.0 L = HGB) HEMATOCRIT (test code 32.9 % 33.0-45.0 L = HCT) MEAN CELL VOLUME 86.1 fL 81.0-99.0 N (test code = MCV) MEAN CELL HGB (test 25.9 pg 27.0-33.0 L code = MCH) MEAN CELL HGB 30.1 g/dL 33.0-37.0 L CONCETRATION (test code = MCHC) RED CELL DISTRIBUTION 16.5 % 11.5-14.5 H WIDTH CV (test code = RDW) RED CELL DISTRIBUTION 51.8 fL 37.0-54.0 N WIDTH SD (test code = RDW-SD) PLATELET COUNT (test 314 x10 3/uL 150-400 N code = PLT) MEAN PLATELET VOLUME 11.0 fL 7.0-9.0 H (test code = MPV) NEUTROPHIL % (test 87.9 % 56.0-77.0 H code = NT%) IMMATURE GRANULOCYTE 0.6 % 0.0-2.0 N % (test code = IG%) LYMPHOCYTE % (test 4.7 % 14.0-32.0 L code = LY%) MONOCYTE % (test code 6.7 % 4.8-9.0 N = MO%) EOSINOPHIL % (test 0.0 % 0.3-3.7 L code = EO%) BASOPHIL % (test code 0.1 % 0.0-2.0 N = BA%) NUCLEATED RBC % (test 0.0 % 0-0 N code = NRBC%) NEUTROPHIL # (test 13.95 x10 3/uL 2.0-7.6 H code = NT#) IMMATURE GRANULOCYTE 0.10 x10 3/uL 0.00-0.03 H # (test code = IG#) LYMPHOCYTE # (test 0.75 x10 3/uL 1.0-3.8 L code = LY#) MONOCYTE # (test code 1.06 x10 3/uL 0.1-0.8 H = MO#) EOSINOPHIL # (test 0.00 x10 3/uL 0.0-0.2 N code = EO#) BASOPHIL # (test code 0.01 x10 3/uL 0.0-0.2 N = BA#) NUCLEATED RBC # (test 0.00 x10 3/uL 0.0-0.1 N code = NRBC#) MANUAL DIFF REQUIRED NO SLIDE R MARY, (test code = MDIFF) CONSISTE NT WITH AUTO DIFF. HGBA1C%2019-02-17 06:06:00 Test Item Value Reference Range Interpretation Comments HGBA1C% (test code = HGBA1C%) 5.8 %A1C 4.8-6.0 N BASIC METABOLIC [id number] 05:55:00 Test Item Value Reference Range Interpretation Comments SODIUM (test code = NA) 147 mEq/L 134-147 N POTASSIUM (test code = 3.3 mEq/L 3.4-5.0 L K) CHLORIDE (test code = 118 mEq/L 100-108 H CL) CARBON DIOXIDE (test 24 mEq/L 21-33 N code = CO2) ANION GAP (test code = 8 0-20 N GAP) GLUCOSE (test code = 153 mg/dL 70-110 H GLU) BLOOD UREA NITROGEN 8 mg/dL 7-18 (test code = BUN) GLOMERULAR FILTRATION 105.4 90-95 H Units of measure = RATE (test code = GFR) ml/mi n/1.73 m2 CREATININE (test code = 0.6 mg/dL 0.6-1.3 N CREAT) CALCIUM (test code = 7.9 mg/dL 8.0-10.5 L CA) COMMENTS: FastingLIPID PROFILE (CORONARY RISK)2019-02-17 05:55:00 Test Item Value Reference Range Interpretation Comments TRIGLYCERIDES (test 94 mg/dL 40-150 N code = TRIG) CHOLESTEROL (test 154 mg/dL <200 code = CHOL) CHOLESTEROL/HDL 3.42 RATIO 3.27-4.44 N RISK ASSOCIA CARON WITH RATIO (test code = CHOL/HDL RATIOS: RISK CHOLHDL) MALE FEMALE1/2 AVERA GE 3.43 3.27AVERAGE 4.97 4.4 42X AVERAGE 9.55 7.053X AVER AGE 23.39 1 1.04 NOTE THAT THE R EFERENCE VALUE IS RELATE DTO RISK LEVELS RECOM MENDED BY THE NATL.HEA RT, LUNG, AND BLOOD INST. HDL CHOLESTEROL 45.0 mg/dL 39-96 N (test code = HDL) LIPOPROTEIN LDL 77 mg/dL 0-100 N <100 OPT [id number] (test code = LDL) NEAR OPTI MAL/ABOVE [id number] 89 HIGH>PN=255 VE RY HIGH*Guidelines provided by the National Choles terol EducationProgra m Adult Treatment Panel III COMMENTS: [id number] 05:55:00 Test Item Value Reference Range Interpretation Comments MAGNESIUM (test code = MAG) 1.90 mg/dL 1.8-2.4 N COMMENTS: FastingTHYROID STIMULATING [id number] 05:55:00 Test Item Value Reference Range Interpretation Comments THYROID STIMULATING 1.67 0.42-5.47 N Results in HORMONE (test code = TSH) mi lli-International Units/mL COMMENTS: FastingCBC W/AUTO [id number] 05:17:00 Test Item Value Reference Range Interpretation Comments WHITE BLOOD CELL (test code = 15.87 x10 3/uL 4.5-11.0 H WBC) RED BLOOD CELL (test code = 3.82 x10 6/uL 3.54-5.02 N RBC) HEMOGLOBIN (test code = HGB) 9.9 g/dL 11.0-15.0 L HEMATOCRIT (test code = HCT) 32.9 % 33.0-45.0 L MEAN CELL VOLUME (test code = 86.1 fL 81.0-99.0 N MCV) MEAN CELL HGB (test code = 25.9 pg 27.0-33.0 L MCH) MEAN CELL HGB CONCETRATION 30.1 g/dL 33.0-37.0 L (test code = MCHC) RED CELL DISTRIBUTION WIDTH CV 16.5 % 11.5-14.5 H (test code = RDW) RED CELL DISTRIBUTION WIDTH SD 51.8 fL 37.0-54.0 N (test code = RDW-SD) PLATELET COUNT (test code = 314 x10 3/uL 150-400 N PLT) MEAN PLATELET VOLUME (test 11.0 fL 7.0-9.0 H code = MPV) NEUTROPHIL % (test code = NT%) % 56.0-77.0 LYMPHOCYTE % (test code = LY%) % 14.0-32.0 NEUTROPHIL # (test code = NT#) x10 3/uL 2.0-7.6 LYMPHOCYTE # (test code = LY#) x10 3/uL 1.0-3.8 MANUAL DIFF REQUIRED (test code = MDIFF) CBC W/AUTO [id number] 08:13:00 Test Item Value Reference Range Interpretation Comments WHITE BLOOD CELL (test code = 14.70 x10 3/uL 4.5-11.0 H WBC) RED BLOOD CELL (test code = 4.99 x10 6/uL 3.54-5.02 N RBC) HEMOGLOBIN (test code = HGB) 12.8 g/dL 11.0-15.0 N HEMATOCRIT (test code = HCT) 42.0 % 33.0-45.0 N MEAN CELL VOLUME (test code = 84.2 fL 81.0-99.0 N MCV) MEAN CELL HGB (test code = 25.7 pg 27.0-33.0 L MCH) MEAN CELL HGB CONCETRATION 30.5 g/dL 33.0-37.0 L (test code = MCHC) RED CELL DISTRIBUTION WIDTH CV 15.9 % 11.5-14.5 H (test code = RDW) RED CELL DISTRIBUTION WIDTH SD 48.7 fL 37.0-54.0 N (test code = RDW-SD) PLATELET COUNT (test code = 356 x10 3/uL 150-400 N PLT) MEAN PLATELET VOLUME (test 11.4 fL 7.0-9.0 H code = MPV) NEUTROPHIL % (test code = NT%) 91.4 % 56.0-77.0 H IMMATURE GRANULOCYTE % (test 0.5 % 0.0-2.0 N code = IG%) LYMPHOCYTE % (test code = LY%) 4.5 % 14.0-32.0 L MONOCYTE % (test code = MO%) 3.4 % 4.8-9.0 L EOSINOPHIL % (test code = EO%) 0.1 % 0.3-3.7 L BASOPHIL % (test code = BA%) 0.1 % 0.0-2.0 N NUCLEATED RBC % (test code = 0.0 % 0-0 N NRBC%) NEUTROPHIL # (test code = NT#) 13.42 x10 3/uL 2.0-7.6 H IMMATURE GRANULOCYTE # (test 0.08 x10 3/uL 0.00-0.03 H code = IG#) LYMPHOCYTE # (test code = LY#) 0.66 x10 3/uL 1.0-3.8 L MONOCYTE # (test code = MO#) 0.50 x10 3/uL 0.1-0.8 N EOSINOPHIL # (test code = EO#) 0.02 x10 3/uL 0.0-0.2 N BASOPHIL # (test code = BA#) 0.02 x10 3/uL 0.0-0.2 N NUCLEATED RBC # (test code = 0.00 x10 3/uL 0.0-0.1 N NRBC#) MANUAL DIFF REQUIRED (test NO code = MDIFF) PROTHROMBIN [id number] 08:02:00 Test Item Value Reference Range Interpretation Comments PT PATIENT (test code = PTP) 13.8 SECONDS 9.3-12.9 H INTERNATIONAL NORMAL RATIO 1.22 INR Unit 0.8-1.2 H (test code = INR) THROMBOPLASTIN TIME [id number] 08:02:00 Test Item Value Reference Range Interpretation Comments THROMBOPLASTIN TIME PARTIAL 32.4 SECONDS 26-35 N (test code = PTT) COMPREHENSIVE METABOLIC [id number] 07:48:00 Test Item Value Reference Range Interpretation Comments SODIUM (test code = NA) 136 mEq/L 134-147 N POTASSIUM (test code = 3.3 mEq/L 3.4-5.0 L K) CHLORIDE (test code = 104 mEq/L 100-108 N CL) CARBON DIOXIDE (test 23 mEq/L 21-33 N code = CO2) ANION GAP (test code = 12 0-20 N GAP) GLUCOSE (test code = 176 mg/dL 70-110 H GLU) BLOOD UREA NITROGEN 14 mg/dL 7-18 N (test code = BUN) GLOMERULAR FILTRATION 75.6 90-95 L Units of measure = RATE (test code = GFR) ml/mi n/1.73 m2 CREATININE (test code = 0.8 mg/dL 0.6-1.3 N CREAT) TOTAL PROTEIN (test 7.5 g/dL 6.4-8.2 N code = PROT) ALBUMIN (test code = 3.20 g/dL 3.4-5.0 L ALB) CALCIUM (test code = 9.1 mg/dL 8.0-10.5 N CA) BILIRUBIN TOTAL (test 0.5 MG/DL <1.5 N code = BILT) SGOT/AST (test code = 7 IUnit/L 15-37 L AST) SGPT/ALT (test code = 17 IUnit/L 15-65 N ALT) ALKALINE PHOSPHATASE 103 IUnit/L 20-125 N TOTAL (test code = ALKP) PROTHROMBIN [id number] 07:08:00 Test Item Value Reference Range Interpretation Comments PROTHROMBIN TIME 14.8 SECONDS 9.3-12.9 H PATIENT (test code = PTP) INTERNATIONAL NORMAL 1.4 0.8-1.2 H TARGET RATIO (test code = INR BY IN DICATION INR) Indication INR1. Prophyl axis of venous thrombos is 2.0 - 3. 0 (orthopedic facundo caprice), Prophylaxis of venous thrombos is (other than hig h-risk surgery), Snehal tment of Deep Vein Thrombosis/Pulm onary Embolism, Preve ntion of systemic emb olism - Tissue heart va lves, Acute Myocardia l Infarction (to prevent systemic embo lism), Valvular heart disease, Atri al Fibrillation, Bileaflet mecha nical valve in aortic position.2. Mec hanical prosthetic valv es (high risk), 2.5 - 3.5 Presence of Lupus Anticoagu lant or Antiphospholi pid Antibodies, Pre vention of systemic e mbolism - Acute Myocard ial Infarction (t o prevent recurre nt infarct). THROMBOPLASTIN TIME [id number] 07:08:00 Test Item Value Reference Range Interpretation Comments THROMBOPLASTIN TIME 35.8 Seconds 25.0-39.5 N Ther apeutic PARTIAL (test code = Range: 50.4 - 88.3 PTT) Seconds Effective 05/29/2018 - CT ANGIO [id number] 05:32:00 Name: BRIAN RANDHAWA [facility] [place] : 1965 Age/S: 53 / F [address] [place] [address] Blvd Unit #: [id number] Loc: Joni [id number] Phys: Jonny Chandra MD Acct: [id number] Dis Date: Status: ADM IN PHONE #: [phone] Exam Date: 02/16/2019 0402 FAX #: [phone] Reason: SUBARACHNOID EXAMS: CPTCODE: [id number] CT ANGIO NECK [address] Study: - CT ANGIO HEAD, - CT ANGIO NECK Clinical Indication: SUBARACHNOID Comparison: Noncontrast CT head performed 02/16/2019 TECHNIQUE: Sequential trans-axial images of the head and neck are obtained with a multi-detector helical CT after intravenous administration of 100ml Isovue 300. Coronal and sagittal reconstructions are acquired, along with 3D post-processing imaging for exam interpretation. All CT scans at this location are performed using dose optimization techniques as appropriate to a performed exam including the following: ? Automated exposure control ? Adjustment of the mA and/or kV according to patient size (this includes techniques or standardized protocols for targeted exams where dose is matched to indication / reason for exam; i.e. extremities or head ) ? Use of iterative reconstruction technique CT Radiation Dose DLP: 988.33 mGy-cm CTA NECK: FINDINGS: The visualized portion of the aortic arch and the great vessel origins are normal in appearance. The common carotid arteries, carotid bulbs and cervical internal and external carotid arteries bilaterally are unremarkable. Distal right internal carotid artery measures 5 mm in diameter. Distal left internal carotid artery measures 5 mm in diameter. No significant stenosis of the proximal internal carotid arteries by NASCET criteria. The vertebral arteries are normal throughout their visualized courses. There is no evidence for stenosis, occlusion, dissection or other vascular irregularity. If there is further concern, recommend conventional angiography for complete assessment. Any reported ICA stenosis directly references the distal internal carotid diameter as the denominator for stenosis measurement. NON-VASCULAR STRUCTURES: Dental erosive fabienne nges and periventricular PAGE 1 Signed Report (CONTINUED) Name: BRIAN RANDHAWA [facility] [place] : 1965 Age/S: 53 / F [address] [place] [address] Blvd Unit #: [id number] Loc: [place] [address] Phys: Jonny Chandra MD Acct: [id number] Dis Date: Status: ADM IN PHONE #: [phone] Exam Date: 02/16/2019401 FAX #: [phone] Reason: SUBARACHNOID EXAMS: CPT CODE: [id number] CT ANGIO NECK [address] <Continued> lucencies including the bilateral maxillary first molar and right maxillary second molar teeth. 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 The saccular aneurysm protrudes anteriorly and superiorly. A1 segments and proximalA2 segments of the anterior cerebral artery small in caliber, which may be secondary to vasospasm. The distal A2 segments of the anterior cerebral artery within normal limits. Bilateral middle cerebral arteries within normal limits. Distal cervical, petrous, cavernous and supraclinoid segments of the internal carotid arteries widely patent. Posterior communicating arteries not well seen and may be hypoplastic. Distal vertebral arteries widely patent. Left vertebral artery dominant. Basilar artery widely patent. Bilateral posteri or cerebral and superior cerebellar arteries within normal limits. CONTRAST ENHANCED BRAIN IMAGES: Again seen right frontal lobe parenchyma hemorrhage medially with surrounding edema. Bilateral intraventricular hemorrhage. Again seen subarachnoid helical hemorrhage along the bilateral frontal sulci. No significant abnormal parenchymal enhancement is noted. If there is further concern, recommend conventional angiography for complete assessment. 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 Decreased enhancement and narrowing of the A1 segments of and proximal A2 segments of the anterior cerebral arteries. Findings may be secondary to vasospasm and/or underlying stenosis. No significant stenosis of the proximal internal carotid arteries by NASCET criteria. No significant vertebralartery stenosis. Again seen parenchymal hemorrhage within the right frontal lobe, which PAGE 2 Signed Report (CONTINUED) Name: BRIAN RANDHAWA : 1965 Age/S: 53 / F [address] [place] [address] Unit #: [id number] Loc: CARLINE Quinones [address] Phys: Jonny Chandra MD Acct: [id number] Dis Date: Status: ADM IN PHONE #: [phone] ExamDate: 02/16/2019401 FAX #: [phone] Reason: SUBARACHNOID EXAMS: CPT CODE: [id number] CT ANGIO NECK [address] <Continued> is notsignificantly changed. Again seen intraventricular hemorrhage within bilateral lateral ventricles. Subtle areas of subarachnoid hemorrhage within the bilateral frontal sulci. SL: KPATEL-H at 0532 Reported and signed by: Ulises Franz M.D. CC: Jonny Chandra MD Technologist:RT Jose(R)(CT); Alex CTDI: DLP: Trnscb Date/Time: 02/16/2019 (0532) [email or web address] Orig Print D/T: S: 02/16/2019 (0535) PAGE 3 Signed Report - CT ANGIO [id number] 05:32:00 Name: BRIAN RANDHAWA : 1965 Age/S: 53 / F [address] [place] [address] Unit #: [id number] Loc: Joni [id number] Phys: Jonny Chandra MD Acct: [id number] Dis Date: Status: ADM IN PHONE #: [phone] Exam Date: 02/16/2019401 FAX #: [phone] Reason: SUBARACHNOID EXAMS: CPTCODE: [id number] CT ANGIO HEAD 63258 Study: - CT ANGIO HEAD, - CT ANGIO NECK Clinical Indication: SUBARACHNOID Comparison: Noncontrast CT head performed 02/16/2019 TECHNIQUE: Sequential trans-axial images of the head and neck are obtained with a multi-detector helical CT after intravenous administration of 100ml Isovue 300. Coronal and sagittal reconstructions are acquired, along with 3D post-processing imaging for exam interpretation. All CT scans at this location are performed using dose optimization techniques as appropriate to a performed exam including the following: ? Automated exposure control ? Adjustment of the mA and/or kV according to patient size (this includes techniques or standardized protocols for targeted exams where dose is matched to indication / reason for exam; i.e. extremities or head ) ? Use of iterative reconstruction technique CT Radiation Dose DLP: 988.33 mGy-cm CTA NECK: FINDINGS: The visualized portion of the aortic arch and the great vessel origins are normal in appearance. The common carotid arteries, carotid bulbs and cervical internal and external carotid arteries bilaterally are unremarkable. Distal right internal carotid artery measures 5 mm in diameter. Distal left internal carotid artery measures 5 mm in diameter. No significant stenosis of the proximal internal carotid arteries by NASCET criteria. The vertebral arteries are normal throughout their visualized courses. There is no evidence for stenosis, occlusion, dissection or other vascular irregularity. If there is further concern, recommend conventional angiography for complete assessment. Any reported ICA stenosis directly references the distal internal carotid diameter as the denominator for stenosis measurement. NON-VASCULAR STRUCTURES: Dental erosive fabienne nges and periventricular PAGE 1 Signed Report (CONTINUED) Name: BRIAN RANDHAWA [facility] : 1965 Age/S: 53 / F [address] [place] [address] Unit #: [id number] Loc: [place] [address] Phys: Jonny Chandra MD Acct: [id number] Dis Date: Status: ADM IN PHONE #: [phone] Exam Date: 02/16/2019 0402 FAX #: [phone] Reason: SUBARACHNOID EXAMS: CPT CODE: [id number] CT ANGIO HEAD [address] <Continued> lucencies including the bilateral maxillary first molar and right maxillary second molar teeth. 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 The saccular aneurysm protrudes anteriorly and superiorly. A1 segments and proximalA2 segments of the anterior cerebral artery small in caliber, which may be secondary to vasospasm. The distal A2 segments of the anterior cerebral artery within normal limits. Bilateral middle cerebral arteries within normal limits. Distal cervical, petrous, cavernous and supraclinoid segments of the internal carotid arteries widely patent. Posterior communicating arteries not well seen and may be hypoplastic. Distal vertebral arteries widely patent. Left vertebral artery dominant. Basilar artery widely patent. Bilateral posteri or cerebral and superior cerebellar arteries within normal limits. CONTRAST ENHANCED BRAIN IMAGES: Again seen right frontal lobe parenchyma hemorrhage medially with surrounding edema. Bilateral intraventricular hemorrhage. Again seen subarachnoid helical hemorrhage along the bilateral frontal sulci. No significant abnormal parenchymal enhancement is noted. If there is further concern, recommend conventional angiography for complete assessment. 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 Decreased enhancement and narrowing of the A1 segments of and proximal A2 segments of the anterior cerebral arteries. Findings may be secondary to vasospasm and/or underlying stenosis. No significant stenosis of the proximal internal carotid arteries by NASCET criteria. No significant vertebralartery stenosis. Again seen parenchymal hemorrhage within the right frontal lobe, which PAGE 2 Signed Report (CONTINUED) Name: BRIAN RANDHAWA [facility] : 1965 Age/S: 53 / F [address] [place] [address] Blvd Unit #: [id number] Loc: [place] [address] Phys: Jonny Chandra MD Acct: [id number] Dis Date: Status: ADM IN PHONE #: [phone] ExamDate: 02/16/2019 040 FAX #: [phone] Reason: SUBARACHNOID EXAMS: CPT CODE: [id number] CT ANGIO HEAD [address] <Continued> is notsignificantly changed. Again seen intraventricular hemorrhage within bilateral lateral ventricles. Subtle areas of subarachnoid hemorrhage within the bilateral frontal sulci. SL: KPATEL-H at 0532 Reported and signed by: Ulises Franz M.D. CC: Jonny Chandra MD Technologist:RT Jose(R)(CT); Alex CTDI: DLP: Trnscb Date/Time: 02/16/2019 (0532) [email or web address] Orig Print D/T: S: 02/16/2019 (0535) PAGE 3 Signed Report TROPONIN I [id number] 02:49:00 Test Item Value Reference Range Interpretation Comments TROPONIN I RAPID 0.00 ng/mL 0.00-0.08 N - The use o f serial (test code = sampling and te sting TROPIRAP) protocol is a recommended pra ctice- An elevated tro ponin level alone is often not sufficient for diagnosis of my ocardial infarction. CBC W/O [id number] 02:39:00 Test Item Value Reference Range Interpretation Comments WHITE BLOOD CELL (test code = 17.2 K/mm3 3.5-11.0 H WBC) RED BLOOD CELL (test code = RBC) 4.95 M/mm3 4.70-6.10 N HEMOGLOBIN (test code = HGB) 13.0 G/DL 10.4-14.9 N HEMATOCRIT (test code = HCT) 40.1 % 31.5-44.1 N MEAN CELL VOLUME (test code = 81.0 Fl 84.5-98.6 L MCV) MEAN CELL HGB (test code = MCH) 26.3 pg 27.0-34.2 L MEAN CELL HGB CONCETRATION (test 32.4 G/DL 31.5-34.0 N code = MCHC) RED CELL DISTRIBUTION WIDTH (test 16.8 SD 11.5-14.5 H code = RDW) PLATELET COUNT (test code = PLT) 354.0 K/mm3 150-450 N MEAN PLATELET VOLUME (test code = 10.60 fL 7.0-10.5 H MPV) - XR CHEST 1 [id number] 02:24:00 Name: BRIAN RANDHAWA [facility] : 1965 Age/S: 53 / F [address] [place] [place] Unit #: [id number] Loc: [place] [address] Phys: Rafita Engel MD Acct: [id number] Dis Date: Status: REG ER PHONE #: [phone] Exam Date: 02/16/2019209 FAX #: Reason: Code Stroke EXAMS: CPT: [id number] XR CHEST 1 V 86426 Fluoro Time: DAP (Gy m2): Air Kerma (mGy): AFTER HOURS SERVICE ON: 02/16/2019 2:24 AM AP Portable Chest Location Code M12 HISTORY: Code Stroke FINDINGS: There are no infiltrates. There are no pleural effusions. There is no pneumothorax. Cardiac silhouette and mediastinum appear within normal limits. IMPRESSION: No active pulmonary findings. at 0224 Reported and signed by: Radha Sorensen M.D. CC: Rafita Engel MD PAGE 1 Signed Report Name: BRIAN RANDHAWA [facility] : 1965 Age/S: 53 / F [address] [place] Unit #: [id number] Loc: [place] [address] Phys: Rafita Engel MD Acct: [id number] Dis Date: Status: REG ER PHONE #: [phone] Exam Date: 02/16/2019 021 FAX #: Reason: Code Stroke EXAMS: CPT: [id number] XR CHEST 1 V 85990 Fluoro Time: DAP (Gy m2): Air Kerma (mGy): <Continued> Technologist: Kam Castellon RT(R) Trnscb Date/Time: 02/16/2019 (223) [email or web address] Orig Print D/T: S: 02/16/2019 (226) PAGE 2 Signed ReportCHEMISTRY 8 [id number] 02:22:00 Test Item Value Reference Range Interpretation Comments ISTAT-SODIUM (test code = NAP) mmol/L 135-146 ISTAT-POTASSIUM (test code = KP) mmol/L 3.5-4.9 ISTAT-CHLORIDE (test code = CLP) mmol/L 98-109 ISTAT-CARBON DIOXIDE (test code = mmol/L 24-29 N ISTAT-CO2) ISTAT CALCIUM IONIZED (test code = mmol/L 1.12-1.32 ISTAT-KENTRELL) ISTAT-GLUCOSE (test code = GLUP) mg/dL 70-105 H ISTAT-BUN (test code = BUNP) mg/dL 8-26 N BEDSIDE CREATININE (test code = mg/dL 0.6-1.3 N CREATBED) GLOMERULAR FILTRATION RATE POC (test 80 51-120 N code = GFRBED) CHEMISTRY 8 [id number] 02:22:00 Test Item Value Reference Range Interpretation Comments ISTAT-SODIUM (test code = NAP) 138 mmol/L 135-146 N ISTAT-POTASSIUM (test code = KP) 3.1 mmol/L 3.5-4.9 L ISTAT-CHLORIDE (test code = CLP) 100 mmol/L 98-109 N ISTAT-CARBON DIOXIDE (test code = 24 mmol/L 24-29 N ISTAT-CO2) ISTAT CALCIUM IONIZED (test code 1.09 mmol/L 1.12-1.32 L = ISTAT-KENTRELL) ISTAT-GLUCOSE (test code = GLUP) 210 mg/dL 70-105 H ISTAT-BUN (test code = BUNP) 15 mg/dL 8-26 N BEDSIDE CREATININE (test code = 0.8 mg/dL 0.6-1.3 N CREATBED) GLOMERULAR FILTRATION RATE POC 80 51-120 N (test code = GFRBED) - CT HEAD/BRAIN W/O [id number] 02:16:00 Name: BRIAN RANDHAWA [facility] : 1965 Age/S: 53 / F [address] [place] Unit #: [id number] Loc: [place] [address] Phys: Rafita Engel MD Acct: [id number] Dis Date: Status: REG ER PHONE #: [phone] Exam Date: 02/16/2019 0154 FAX #: Reason: CODE STR AMELIA EXAMS: CPT: [id number] CT HEAD/BRAIN W/O CONT 67802 DICTATION LOCATION: 8 HISTORY: Female, 53 years of age with CODE STROKE, fall from bed twice EXAM: CT BRAIN WITHOUT CONTRAST COMPARISON: None TECHNIQUE: Helical axial images were obtained through the brain without IV contrast. Coronal and sagittal reformats were performed. One or more of the following dose reduction techniques were used: Automated exposure control; adjustment of the mA and/or kV according to the patient size; and/or use of iterative reconstruction technique. FINDINGS: No significant scalphematoma. Diffuse intraventricular hemorrhage is present, most abundant in the right lateral ventricle. There is very mild ventricular dilatation/hydrocephalus. Moderate subarachnoid hemorrhage is present in the interhemispheric fissure, mostly anteriorly. There is an oval intraparenchymal hemorrhage in the right frontal lobe measuring approximately 5.9 cm AP dimension, 2.3 cm transverse dimension and 3.2 cm longitudinal dimension associated with vasogenic edema in the right frontal lobe and approximately 0.6 cm right to left midline shift in the anterior cranial fossa. There is mild vasogenic edema in the left frontal lobe as well. There is diffuse sulcal effacement in both cerebral hemispheres. No significant downward herniation at this time. There is no acute calvarial fracture. The sinuses and mastoids are clear. IMPRESSION: 1. Right frontal lobe intraparenchymal hemorrhage, diffuse intraventricular hemorrhage with mild hydrocephalus, and there is subarachnoid hemorrhage in the interhemispheric fissure. 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 2. Vasogenic edema in both frontal lobes, right greater than left. 3. 0.6 cm right to left midline shift in the anterior cranial fossa. 4. Diffuse sulcal effacement in both cerebral hemispheres. Findings were called to Dr. Rafita Engel at 2:06 a.m. FOR INTERNAL CODING PURPOSES ONLY CRITICAL RESULT CODE: CVR PAGE 1 Signed Report (CONTINUED) Name: BRIAN RANDHAWA [facility] : 1965 Age/S: 53 / F [address] [place] Unit #: [id number] Loc: [place] [address] Phys: Rafita Egnel MD Acct: [id number] Dis Date: Status: REG ER PHONE #: [phone] Exam Date: 02/16/2019 0154 FAX #: Reason: CODE STROKE EXAMS: CPT: [id number] CT HEAD/BRAIN W/O CONT 15613 <Continued> at 0216 Reported and signed by: Halina Trivedi MD CC: Rafita Engel MD Technologist:Kam Castellon, RT(R); Jose Hopper, CTDI: DLP: Trnscb Date/Time: 02/16/2019 (215) t.[email or web address].CLW Orig Print D/T: S:02/16/2019 (8515) PAGE 2 Signed ReportCT, [id number] 11:18:00FINAL REPORT ABDOMINAL AND PELVIS CT DATED 12/13/2016 CLINICAL INFORMATION:Abdominal pain, unspecifiedright flank and RLQ pain TECHNIQUE: Pre and post intravenous contrast axial images of the abdomen and pelvis were obtained from diaphragm to the pubic symphysis. The study was performed with renal stone protocol. This exam was performed according to our departmental dose-optimization program, which includes automated exposure control, adjustment of the mA and/or kV according to patient size and/or use of interactive reconstruction technique. COMMENT: An 8 mm nodule is seen in the peripheral of the left lower lobe. Both kidneys are normal in size and functioning. There ishydronephrosis and hydroureter on the right. A 1-2 mm stone is seen in the distal right ureter in the region of the ureterovesicular junction. Inflammatory changes are seen within the right Gerota's fascia. Parapelvic cyst is seen on the left. Liver and spleen are normal in size without focal abnormality. There is diffusely decreased attenuation in the liver consistent with fatty hepatic infiltrate. Gallbladder is distended. No gallstone or biliary dilatation is noted. Pancreas and adrenals are unremarkable. Diverticular disease is seen in the large bowel without diverticulitis. The small bowel is unremarkable. Appendix is normal in caliber. A periumbilical ventral hernia is seen with herniation a segment of the omentum. The uterus and ovaries are normal in appearance. IMPRESSION: 1. Distal right ureteral stone with right hydronephrosis and hydroureter.2. Left parapelvic renal cysts.3. Fattyliver.4. Left lower lobe nodule.5. Periumbilical ventral hernia with herniation a segment of the omentum. Signed: Kam Hatch MDReport Verified Date/Time: 12/13/2016 11:18:45 Reading Location: [facility] C013Y CT Body Reading Room ALYSIS W/ REFLEX URINE [id number] 10:32:00 Test Item Value Reference Range Interpretation Comments COLOR (BEAKER) (test code = Yellow 470) CLARITY (BEAKER) (test code = Slightly Cloudy 469) SPECIFIC GRAVITY UA (BEAKER) 1.020 1.001-1.035 (test code = 468) PH UA (BEAKER) (test code = 8.0 5.0-8.0 467) PROTEIN UA (BEAKER) (test 100 mg/dL Negative A code = 464) GLUCOSE UA (BEAKER) (test Negative Negative code = 365) KETONES UA (BEAKER) (test 40 mg/dL Negative A code = 371) BILIRUBIN UA (BEAKER) (test Negative Negative code = 462) BLOOD UA (BEAKER) (test code Small Negative A = 461) NITRITE UA (BEAKER) (test Negative Negative code = 465) LEUKOCYTE ESTERASE UA Negative Negative (BEAKER) (test code = 466) UROBILINOGEN UA (BEAKER) 0.2 mg/dL 0.2-1.0 (test code = 463) BACTERIA (BEAKER) (test code Moderate = 517) MUCUS (BEAKER) (test code = Few 1574) RBC UA-MANUAL (BEAKER) (test 10-20 /HPF code = 1659) WBC UA-MANUAL (BEAKER) (test <5 /HPF code = 1661) SQUAMOUS EPITHELIAL MANUAL 5-10 /HPF (BEAKER) (test code = 1663) SOURCE(BEAKER) (test code = 2795) SCREEN, [id number] 10:22:00 Test Item Value Reference Range Interpretation Comments TEST URINE (BEAKER) (test Negative code = 583) BASIC METABOLIC [id number] 10:15:00 Test Item Value Reference Range Interpretation Comments SODIUM (BEAKER) 138 meq/L 135-148 (test code = 381) POTASSIUM (BEAKER) 4.2 meq/L 3.6-5.5 (test code = 379) CHLORIDE (BEAKER) 102 meq/L 98-106 (test code = 382) CO2 (BEAKER) (test 25 meq/L 24-32 code = 355) BLOOD UREA NITROGEN 12 mg/dL 10-26 (BEAKER) (test code = 354) CREATININE (BEAKER) 0.89 mg/dL 0.50-1.20 (test code = 358) GLUCOSE RANDOM 133 mg/dL 70-110 H (BEAKER) (test code = 652) CALCIUM (BEAKER) 9.3 mg/dL 8.5-10.5 (test code = 697) EGFR (BEAKER) (test 67 mL/min/1.73 ESTIMA CARON GFR IS code = 1092) sq m NOT ACCURATE CREATININE CLEARANCE IN PREDICTING GLOMERULAR FILTRATION RATE . ESTIMATED GFR I S NOT APPLICABLE FOR DIALYSIS PATIEN TS. HEPATIC FUNCTION [id number] 10:15:00 Test Item Value Reference Range Interpretation Comments TOTAL PROTEIN (BEAKER) (test code = 8.1 gm/dL 6.0-8.5 770) ALBUMIN (BEAKER) (test code = 1145) 4.3 g/dL 3.5-5.0 BILIRUBIN TOTAL (BEAKER) (test code 0.7 mg/dL 0.1-1.2 = 377) BILIRUBIN DIRECT (BEAKER) (test 0.5 mg/dL 0.0-0.4 H code = 706) ALKALINE PHOSPHATASE (BEAKER) (test 126 U/L 30-115 H code = 346) AST (SGOT) (BEAKER) (test code = 26 U/L 5-40 353) ALT (SGPT) (BEAKER) (test code = 20 U/L 5-50 347) [id number] 10:15:00 Test Item Value Reference Range Interpretation Comments LIPASE (BEAKER) (test code = 749) 83 U/L 40-240 CBC W/PLT COUNT & AUTO [id number] 10:06:00 Test Item Value Reference Range Interpretation Comments WHITE BLOOD CELL COUNT (BEAKER) 13.6 10e3/ L 4.0-10.0 H (test code = 775) RED BLOOD CELL COUNT (BEAKER) 5.30 10e6/ L 4.00-5.00 H (test code = 761) HEMOGLOBIN (BEAKER) (test code 12.8 g/dL 12.0-15.0 = 410) HEMATOCRIT (BEAKER) (test code 41.2 % 36.0-45.0 = 411) MEAN CORPUSCULAR VOLUME 77.7 fL 82.0-99.0 L (BEAKER) (test code = 753) MEAN CORPUSCULAR HEMOGLOBIN 24.2 pg 27.0-33.0 L (BEAKER) (test code = 751) MEAN CORPUSCULAR HEMOGLOBIN 31.2 g/dL 32.0-36.0 L CONC (BEAKER) (test code = 752) RED CELL DISTRIBUTION WIDTH 14.6 % 10.3-14.2 H (BEAKER) (test code = 412) PLATELET COUNT (BEAKER) (test 387 10e3/ L 150-430 code = 756) MEAN PLATELET VOLUME (BEAKER) 7.8 fL 6.5-10.5 (test code = 754) NEUTROPHILS RELATIVE PERCENT 87 % (BEAKER) (test code = 429) LYMPHOCYTES RELATIVE PERCENT 7 % (BEAKER) (test code = 430) MONOCYTES RELATIVE PERCENT 4 % (BEAKER) (test code = 431) EOSINOPHILS RELATIVE PERCENT 1 % (BEAKER) (test code = 432) BASOPHILS RELATIVE PERCENT 1 % (BEAKER) (test code = 437) NEUTROPHILS ABSOLUTE COUNT 11.88 10e3/ L 1.80-8.00 H (BEAKER) (test code = 670) LYMPHOCYTES ABSOLUTE COUNT 1.01 10e3/ L 1.48-4.50 L (BEAKER) (test code = 414) MONOCYTES ABSOLUTE COUNT 0.49 10e3/ L 0.00-1.30 (BEAKER) (test code = 415) EOSINOPHILS ABSOLUTE COUNT 0.15 10e3/ L 0.00-0.50 (BEAKER) (test code = 416) BASOPHILS ABSOLUTE COUNT 0.10 10e3/ L 0.00-0.20 (BEAKER) (test code = 417)
--- NOTE | 2021-07-28 16:02 | ER ---
Nurse's Notes [facility] Name: Mishel Zapien Age: 55 yrs Sex: Female : 1965 Arrival Date: 07/28/2021 Time: 14:02 Bed 16 Private MD: Diagnosis: Diverticulitis of large intestine with perforation and abscess Presentation: 07/28 14:07 Chief complaint: Patient states: i have an abscess in my colon and the sent me over tw2 here and sent some papers. i was having problems going #2 and a clear gel was coming out. i wasn't going but i started going again but not normal. she sent me to go get a cat scan and it showed that i had an abscess in my colon. and i am having some lower abdominal gardner that comes and goes. Coronavirus screen: At this time, the client does not indicate any symptoms associated with coronavirus-19. Ebola Screen: Patient denies travel to an Ebola-affected area in the 21 days before illness onset. Initial Sepsis Screen: Does the patient meet any 2 criteria? No. Patient's initial sepsis screen is negative. Does the patient have a suspected source of infection? No. Patient's initial sepsis screen is negative. Risk Assessment: Do you want to hurt yourself or someone else? Patient reports no desire to harm self or others. Onset of symptoms was July 28, 2021. 14:07 Method Of Arrival: Ambulatory tw2 14:07 Acuity: ALFA 3 tw2 Triage Assessment: 14:11 General: Appears in no apparent distress. Behavior is calm, cooperative, appropriate tw2 for age. Pain: Complains of pain in right lower quadrant and left lower quadrant. 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 - Social history:: Smoking status: Patient denies any tobacco usage or history of. Screenin:16 Abuse screen: Denies threats or abuse. Nutritional screening: No deficits noted. tw2 Tuberculosis screening: No symptoms or risk factors identified. Fall Risk None identified. Assessment: 15:15 General: Appears in no apparent distress. comfortable, Behavior is calm, cooperative. ww Pain: Complains of pain in abdomen. Neuro: Level of Consciousness is awake, alert, obeys commands, Oriented to person, place, time, situation, Moves all extremities. Gait is steady, Speech is normal. Cardiovascular: Capillary refill < 3 seconds Patient's skin is warm and dry. Rhythm is regular Chest pain is denied. GI: Abdomen is non-distended, Reports lower abdominal pain, upper abdominal pain, constipation, nausea. : No signs and/or symptoms were reported regarding the genitourinary system. Derm: No signs and/or symptoms reported regarding the dermatologic system. Skin is intact, is healthy with good turgor. Musculoskeletal: No deficits noted. No signs and/or symptoms reported regarding the musculoskeletal system. 16:25 Reassessment: Patient appears in no apparent distress at this time. No changes from ww previously documented assessment. Patient and/or family updated on plan of care and expected duration. Pain level reassessed. Patient is alert, oriented x 3, equal unlabored respirations, skin warm/dry/pink. surgeon at bedside. Discussed plan of care. Canceling CT a/p,, changing antibiotics and will reevaluate tomorrow. 17:17 Reassessment: Patient appears in no apparent distress at this time. No changes from previously documented assessment. Patient and/or family updated on plan of care and expected duration. Pain level reassessed. Patient is alert, oriented x 3, equal unlabored respirations, skin warm/dry/pink. 18:09 Reassessment: attempted to call report. Kevin answered phone and Sugey told her ww night warehouse selector will be getting the patient. SHIMA Rogers notified. Hospitalist at bedside and cancelled D5 IVF due to patient being a diabetic. Vital Signs: 14:07 BP 131 / 83; Pulse 70; Resp 17; Temp 97.8(TE); Pulse Ox 100% on R/A; Height 5 ft. 5 in. tw2 (165.10 cm); Pain 5/10; 16:30 BP 170 / 93; Pulse 84; Pulse Ox 100% ; ww 17:18 BP 159 / 80; Pulse 86; Resp 18; Pulse Ox 100% on R/A; ww ED Course: 14:02 Patient arrived in ED. rg4 14:09 Triage completed. tw2 14:12 Arm band placed on. tw2 14:25 Kevin Vogel NP is PHCP. pm1 14:25 Imtiaz Aquino MD is Attending Physician. pm1 14:56 Bed in low position. Call light in reach. tw2 14:58 Marisabel Aguilar RN is Primary Nurse. ww 16:01 Radha Ruth MD is Hospitalizing Provider. pm1 17:19 Inserted saline lock: 20 gauge in left antecubital area, using aseptic technique. ww 18:35 No provider procedures requiring assistance completed. Patient admitted, IV remains in ww place. Administered Medications: 16:43 Not Given (Physician Discretion): NS 0.9% 1000 ml IV at 1 bolus Per protocol; 1000 mL pm1 bolus 16:43 Not Given (Physician Discretion): Flagyl (metroNIDAZOLE) 500 mg 100 ml IVPB at 200 pm1 ml/hr once over 30 mins 16:43 Not Given (Physician Discretion): LevaQUIN (levofloxacin) 500 mg 100 ml IVPB once over pm1 60 mins 17:00 Drug: Zosyn (piperacillin-tazobactam) 3.375 grams Route: IVPB; Infused Over: 60 mins; ww Site: left antecubital; 17:00 Drug: NS 0.9% 1000 ml Route: IV; Rate: 125 ml/hr; Site: left antecubital; ww Medication: 15:16 VIS not applicable for this client. tw2 Outcome: 16:01 Decision to Hospitalize by Provider. pm1 18:35 Admitted to Med/surg accompanied by tech, via wheelchair, room 217, with chart, Report ww called to Telma 18:35 Condition: stable 18:35 Instructed on the need for admit. 18:36 Patient left the ED. ww Signatures: Kevin Vogel NP LIFE INSURANCE SALESPERSON pm1 Sandra Valencia RN RN tw2 Nohemy Jenkins rg4 Marisabel Aguilar RN RN ww Corrections: (The following items were deleted from the chart) 14:12 14:09 PSHx: None; tw2 tw2
--- NOTE | 2021-07-28 16:02 | EDPHYS ---
Physician Documentation [facility] Name: Mishel Zapien Age: 55 yrs Sex: Female : 1965 Arrival Date: 07/28/2021 Time: 14:02 Bed 16 Private MD: ED Physician Imtiaz Aquino HPI: 07/28 15:20 This 55 yrs old Female presents to ER via Ambulatory with complaints of abdominal pm1 abscess. 15:20 The patient presents with abdominal pain in the lower abdomen. Onset: The pm1 symptoms/episode began/occurred 2 week(s) ago. The symptoms do not radiate. Associated signs and symptoms: none. Pertinent negatives: nausea, vomiting, and diarrhea, constipation, dysuria, fever. The symptoms are described as sharp. Modifying factors: The symptoms are alleviated by nothing, the symptoms are aggravated by nothing. Severity of pain: in the emergency department the pain is actually worse. The patient has not experienced similar symptoms in the past. The patient has been recently seen by a physician: the patient's primary care provider, with similar presenting complaints, lab tests were done, CT scan was done, Told to report to the ER post CT results showing diverticulitis with perforation and abscess. 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 - Social history:: Smoking status: Patient denies any tobacco usage or history of. ROS: 15:20 Constitutional: Negative for fever, chills, and weight loss, Cardiovascular: Negative pm1 for chest pain, palpitations, and edema, Respiratory: Negative for shortness of breath, cough, wheezing, and pleuritic chest pain. 15:20 Back: Negative for injury and pain, MS/Extremity: Negative for injury and deformity, Skin: Negative for injury, rash, and discoloration, Neuro: Negative for headache, weakness, numbness, tingling, and seizure. 15:20 Abdomen/GI: Positive for abdominal pain, of the right lower quadrant and left lower quadrant, Negative for nausea, vomiting, and diarrhea. 15:20 All other systems are negative. Exam: 15:20 Constitutional: This is a well developed, well nourished patient who is awake, alert, pm1 and in no acute distress. Head/Face: Normocephalic, atraumatic. 15:20 Back: No spinal tenderness. No costovertebral tenderness. Full range of motion. Skin: Warm, dry with normal turgor. Normal color with no rashes, no lesions, and no evidence of cellulitis. MS/ Extremity: Pulses equal, no cyanosis. Neurovascular intact. Full, normal range of motion. 15:20 Cardiovascular: Exam negative for acute changes, Rate: normal, Rhythm: regular, Pulses: no pulse deficits are appreciated. 15:20 Respiratory: Exam negative for acute changes, respiratory distress, shortness of breath. 15:20 Abdomen/GI: Inspection: abdomen appears normal, Palpation: soft, in all quadrants, nontender, in all quadrants. 15:20 Neuro: Exam negative for acute changes, Orientation: is normal, Mentation: is normal, Motor: is normal, moves all fours. Vital Signs: 14:07 BP 131 / 83; Pulse 70; Resp 17; Temp 97.8(TE); Pulse Ox 100% on R/A; Height 5 ft. 5 in. tw2 (165.10 cm); Pain 5/10; 16:30 BP 170 / 93; Pulse 84; Pulse Ox 100% ; ww 17:18 BP 159 / 80; Pulse 86; Resp 18; Pulse Ox 100% on R/A; ww MDM: 15:07 Patient medically screened. pm1 15:29 Physician consultation: Jamie Oshea MD was called at 15:20, was contacted at 15:20, pm1 regarding consult, patient's condition, would like admission per Dr. Radha Ruth MD would like further tests performed, CT scan, with IV contrast since no CD avaliable. 16:00 Physician consultation: Jamie Oshea MD saw patient in the ER and canceled CT pm1 abd/pelvis. Admit to Dr. Ruth and would like zosyn. 16:56 Data reviewed: vital signs. pm1 07/28 15:20 Order name: CBC with Diff pm1 07/28 15:20 Order name: CMP; Complete Time: 16:43 pm1 07/28 15:20 Order name: Lipase; Complete Time: 16:43 pm1 07/28 15:23 Order name: COVID-19 SARS RT PCR (Document "Date of Onset" if Symptomatic); Complete pm1 Time: 17:31 07/28 17:06 Order name: Urine Dipstick-Ancillary; Complete Time: 17:07 EDMS 07/28 15:20 Order name: IV Saline Lock; Complete Time: 17:00 pm1 07/28 16:53 Order name: CONS Physician Consult EDMS 07/28 16:56 Order name: NPO; Complete Time: 17:00 EDMS 07/28 15:20 Order name: Labs collected and sent; Complete Time: 17:00 pm1 07/28 15:20 Order name: Urine Dipstick-Ancillary (obtain specimen); Complete Time: 17:00 pm1 07/28 15:20 Order name: Urine Test (obtain specimen); Complete Time: 17:00 pm1 Administered Medications: 16:43 Not Given (Physician Discretion): NS 0.9% 1000 ml IV at 1 bolus Per protocol; 1000 mL pm1 bolus 16:43 Not Given (Physician Discretion): Flagyl (metroNIDAZOLE) 500 mg 100 ml IVPB at 200 pm1 ml/hr once over 30 mins 16:43 Not Given (Physician Discretion): LevaQUIN (levofloxacin) 500 mg 100 ml IVPB once over pm1 60 mins 17:00 Drug: Zosyn (piperacillin-tazobactam) 3.375 grams Route: IVPB; Infused Over: 60 mins; ww Site: left antecubital; 17:00 Drug: NS 0.9% 1000 ml Route: IV; Rate: 125 ml/hr; Site: left antecubital; ww Disposition: 19:21 Co-signature as Attending Physician, Imtiaz Aquino MD I agree with the assessment and kdr plan of care. Disposition Summary: 07/28/21 16:01 Hospitalization Ordered Hospitalization Status: Inpatient Admission pm1 Provider: Radha Ruth pm1 Location: Telemetry/[facility] (Inpatient) pm1 Condition: Stable pm1 Problem: new pm1 Symptoms: have improved pm1 Bed/Room Type: Standard pm1 Room Assignment: [facility](07/28/21 17:52) dw Diagnosis - Diverticulitis of large intestine with perforation and abscess pm1 Forms: - Medication Reconciliation Form pm1 - SBAR form pm1 Signatures: Dispatcher [employer] EDInga Stewart RN RN dw Imtiaz Aquino MD MD kdr Marinas, Patrick, FIRST OFFICER AND FLIGHT INSTRUCTOR FIRST OFFICER AND FLIGHT INSTRUCTOR pm1 Sandra Valencia RN RN tw2 Marisabel Aguilar RN RN ww Corrections: (The following items were deleted from the chart) 14:12 14:09 PSHx: None; tw 15:59 15:23 Abdomen Pelvis W Con+CT.RAD.BRZ ordered. EDMS EDMS 17:52 16:01 pm1 dw
[2021-07-28 16:34] LABS: Absolute Lymphocytes (CBC) 1.8 K/uL (0.7-4.9); Lymphocytes % 24.1 % (15.3-44.8); MPV 8.4 fL (7.6-11.3)
[2021-07-28 16:42] LABS: Albumin 2.8 g/dL (3.4-5.0); Bilirubin Total 0.3 mg/dL (0.2-1.0); Potassium 3.4 mmol/L (3.5-5.1); Protein, Total 7.3 g/dL (6.4-8.2)
[2021-07-28] MEDS ORDERED: PIPERACIL/TAZO 3.375 GM VIAL IV ONE (16:51)
[2021-07-28] MEDS ORDERED: NA CHLORIDE 0.9% 1,000 ML ONE (16:51)
[2021-07-28] MEDS ORDERED: NA CHLORIDE 0.9% 100 ML ONE (16:51)
[2021-07-28] MEDS ORDERED: MORPHINE 4 MG/ML SYR IV PRN (16:55)
[2021-07-28] MEDS ORDERED: SODIUM CHLORIDE 0.9% 10ML INJ IV PRN (16:57)
[2021-07-28] MEDS ORDERED: ACETAMINOPHEN 500 MG TAB PO PRN (16:58)
[2021-07-28] MEDS ORDERED: ONDANSETRON 4 MG/2 ML VIAL IV PRN (16:58)
[2021-07-28] MEDS: HEPARIN 5000 UNIT/ML 1 ML VIAL SQ SCH ×2 (17:00→23:55)
[2021-07-28] MEDS ORDERED: D5 0.9 NS 1,000 ML IV SCH (17:00)
[2021-07-28] MEDS ORDERED: MELATONIN 5 MG TABLET PO PRN (17:01)
--- NOTE | 2021-07-28 17:02 | P.HP ---
Certification for Inpatient Patient admitted to: Inpatient With expected LOS: >2 Midnights Patient will require the following post-hospital care: None Practitioner: I am a practitioner with admitting privileges, knowledge of patient current condition, hospital course, and medical plan of care. Services: Services provided to patient in accordance with Admission requirements found in Title 42 Section 412.3 of the Code of Federal Regulations Patient History Date of Service: 07/28/21 Reason for admission: Abdominal pain. History of Present Illness: Patient is a 55-year-old with a past medical history significant for DM 2, hypertension, hypothyroidism, obesity who presents with complaint of abdominal pain located in the lower quadrants. Patient reported abdominal pain that has been ongoing for the past 2 weeks. Patient rated pain as 10/10 at its worse state and described pain as cramping quality. Patient was on laxatives thinking that she was having constipation but did not get any relief. .Patient denies any other signs or symptoms. Symptoms are aggravated or relieved by nothing. Patient reported that a couple days ago she started having "clear gel' coming from her rectum whenever she tried to use the bathroom. Patient followed up with her PCP 6 days ago and PCP ordered CT of the abdomen. Patient was called today from her doctor's office and instructed to go to the ER due to diverticulitis with abscess and perforation. Patient said to present to the hospital as directed by her PCP. Allergies No Known Allergies Allergy (Unverified 07/28/21 18:06) Home Medications: Levothyroxine Sodium [Levothyroxine] 25 mcg PO DAILY 07/28/21 Losartan Potassium 50 mg PO DAILY 07/28/21 - Past Medical/Surgical History -: Hypertension -: Hypothyroidism -: Obesity -: DM2 Past Surgical History: Reviewed- Non-Contributory - Family History Family History: Reviewed- Non-Contributory - Social History Smoking Status: Never smoker Alcohol use: No CD- Drugs: No Caffeine use: Yes Place of Residence: Home Review of Systems General: Unremarkable Eyes: Unremarkable ENT: Unremarkable Respiratory: Unremarkable Cardiovascular: Unremarkable Gastrointestinal: Abdominal Pain Musculoskeletal: Unremarkable Integumentary: Unremarkable Neurological: Unremarkable Lymphatics: Unremarkable Physical Examination - Physical Exam General: Alert, In no apparent distress, Oriented x3 HEENT: Atraumatic, PERRLA, Mucous membr. moist/pink, EOMI, Sclerae nonicteric Neck: Supple, 2+ carotid pulse no bruit, No LAD, Without JVD or thyroid abnormality Respiratory: Clear to auscultation bilaterally, Normal air movement Cardiovascular: Normal pulses, Regular rate/rhythm, Normal S1 S2 Capillary refill: <2 Seconds Gastrointestinal: Normal bowel sounds, Tenderness Musculoskeletal: No clubbing, No swelling, No tenderness Integumentary: No rashes, No erythema, No warmth Neurological: Normal gait, Normal speech, Normal strength at 5/5 x4 extr, Normal tone, Normal affect Lymphatics: No axilla or inguinal lymphadenopathy - Studies Laboratory Data (last 24 hrs) 07/28/21 16:17: Sodium 142, Potassium 3.4 L, BUN 17, Creatinine 0.88, Glucose 94, Total Bilirubin 0.3, AST 24, ALT 56, Alkaline Phosphatase 92, Lipase 134 07/28/21 16:17: WBC 7.4, Hgb 11.7 L, Hct 36.0, Plt Count 361 Assessment and Plan - Plan --Acute perforated sigmoid diverticulitis. As noted on CT imaging. CT imaging also indicated small pericolonic abscess. Patient placed on antibiotics. Surgeon consulted. We will keep patient NPO. Continue IV hydration. Will await further recommendations from surgeon. --Acute pain. We will manage pain with current pain medication regimen --Hypothyroidism. Continue Synthroid. --DM2. BS monitoring with sliding scale insulin. --Hypertension. Poorly controlled. Continue medications and hydralazine as needed. --Class III obesity. Likely secondary to excess calories intake. Patient counseled on weight reduction, diet and exercise therapy. --Anemia of chronic disease. H&H stable. We will continue to monitor hemoglobin and transfuse if less than 7.0. --Hypokalemia. Replete as needed. --DVT prophylaxis with heparin subQ Discharge Plan: Home Plan to discharge in: Greater than 2 days - Advance Directives Does patient have a Living Will: No Does patient have a Durable POA for Healthcare: No - Code Status/Comfort Care Code Status Assessed: Yes Code Status: Full Code Physician Review: Patient Assessed, Agree with Above Assessment and Plan Critical Care: No
[2021-07-28 17:06] LABS: Urine Blood 1+ (Negative); Urine Glucose Negative (Negative); Urine Protein Negative (Negative); Urine Specific Gravity >=1.030 (1.005-1.030)
[2021-07-28 17:40] VITALS: BMI 35.1
[2021-07-28] MEDS ORDERED: GLUCAGON 1 MG/VIAL IM PRN (18:42)
[2021-07-28] MEDS: INSULIN -REGULAR HUMAN 50 UNIT/0.5 ML ML SQ SCH ×2 (18:45→22:45)
[2021-07-28 18:51] LABS: Blood Morphology Comment NOT SEEN (NOT SEEN); Platelet Estimate ADEQ; White Blood Cell Scan OK (OK)
[2021-07-28] MEDS ORDERED: HYDRALAZINE HCL 20 MG/ML VIAL IV PRN (19:00)
[2021-07-28] MEDS ORDERED: DEXTROSE 10%-WATER 500 ML IV BAG IV PRN (19:03)
[2021-07-28] MEDS ORDERED: KCL 10 MEQ/100 ML IVPB 10 MEQ/100 ML BAG IV SCH (20:00)
[2021-07-28] MEDS: PANTOPRAZOLE 40 MG INJ IVP SCH (20:35)
[2021-07-28] MEDS: KCL 20 MEQ/100 mL IVPB 20 MEQ/100 ML BAG IV SCH (20:36)
[2021-07-28] MEDS ORDERED: POTASSIUM CL SA 10 MEQ TAB PO ONE ×2 (21:25→21:50)
[2021-07-28] MEDS: PIPER TAZO 3.375 GM in NA CHLORIDE 0.9% 100 ML IV SCH (23:55)
[2021-07-29 04:09] LABS: Absolute Lymphocytes (CBC) 1.9 K/uL (0.7-4.9); Hematocrit 33.8 % (36.0-45.0); Lymphocytes % 30.4 % (15.3-44.8); MPV 8.6 fL (7.6-11.3); RBC Red Blood Cell Count 4.17 M/uL (3.86-4.86)
[2021-07-29 04:35] LABS: Albumin 2.4 g/dL (3.4-5.0); Bilirubin Total 0.3 mg/dL (0.2-1.0); Potassium 3.5 mmol/L (3.5-5.1); Protein, Total 6.2 g/dL (6.4-8.2)
[2021-07-29] MEDS: INSULIN -REGULAR HUMAN 50 UNIT/0.5 ML ML SQ SCH ×4 (06:45→20:16)
[2021-07-29] MEDS ORDERED: PIPERACIL/TAZO 3.375 GM VIAL IV ONE (08:39)
[2021-07-29] MEDS: PIPER TAZO 3.375 GM in NA CHLORIDE 0.9% 100 ML IV SCH ×2 (09:42→18:29)
[2021-07-29] MEDS: LOSARTAN POTASSIUM 50 MG TABLET PO SCH (09:45)
[2021-07-29] MEDS: LEVOTHYROXINE SOD 0.025 MG TAB PO SCH (09:45)
[2021-07-29] MEDS: HEPARIN 5000 UNIT/ML 1 ML VIAL SQ SCH ×2 (09:45→18:30)
[2021-07-29] MEDS: PANTOPRAZOLE 40 MG INJ IVP SCH (09:46)
[2021-07-29] MEDS ORDERED: POTASSIUM CL SA 10 MEQ TAB PO ONE (10:34)
[2021-07-29 14:32] VITALS: O2SAT 98
[2021-07-29] MEDS ORDERED: GLUCAGON 1 MG/VIAL IM PRN (18:27)
[2021-07-29] MEDS ORDERED: DEXTROSE 10%-WATER 500 ML IV BAG IV PRN (18:36)
--- NOTE | 2021-07-29 19:11 | CON ---
History Of Present Illness: The patient is a 55-year-old female. I was consulted for management and treatment of diverticulitis. The patient was having abdominal pain for [address] scan do ne by primary care physician, no CT scan is available at this time. The ER was called in to report t hat the patient's CT scan shows diverticulitis with abscess and perforation. The patient since then has been at hospital. The patient has been admitted where she was put on n.p.o. for a day and now on clear liquid, tolerating well. She has no abdominal pain at this time. Denies any nausea, vomiting . Had bowel movement yesterday with gel formation and some germs as per the patient. The patient al so has significant past medical history of diabetes mellitus, but not taking any medications because metformin gave her diarrhea. The patient also has history of hypertension and hypothyroidism and mor bid obesity, but has been losing weight. She was not able to eat much for last couple of weeks. The patient denies any other challenges at this time. Past Medical History: Hypertension, hyperthyroidism, obesity, diabetes mellitus. Past Surgical History: Noncontributory. Social History: Nonsmoker, nondrinker. Family History: Noncontributory. Medications: The patient is currently being treated with Zosyn. See MAR for other medications. Allergies: NO KNOWN DRUG ALLERGIES. Review of Systems: A 10-point review was performed. Physical Examination: General: This is a 55-year-old female, lying in bed, not in any acute distress. Very pleasant to ta lk to. Vital Signs: Temperature 97.7, pulse 56, respirations 16, blood pressure 138/65. HEENT: Unremarkable. Neck: Supple. Lungs: Clear to auscultation. Heart: S1, S2. Regular. Abdomen: Bowel sounds present. Nontender. Extremities: No edema. Laboratory Data: Shows WBC 6.4, hemoglobin 10.9, platelets are 319. Chemistry shows sodium 145, pot assium 3.5, chloride 112, bicarb 25, BUN 15, creatinine 0.8, glucose is 102. Albumin level is 2.4. No micro data is available at this time. CT scan with contrast is pending. Assessment And Plan: A 55-year-old female, coming in with abdominal abscess secondary to diverticuli tis and perforation. Has improved significantly. Recommend to repeat a CT scan while the patient is on empiric antibiotic, Zosyn. Continue supportive care and continue current treatment. The patient also has significant history of diabetes mellitus, diet controlled, and anemia of chronic disease. The patient also showing signs of moderate protein-calorie malnourishment. Consider increase nutriti onal status and follow the patient closely. Thank you Dr. Ruth for consult. NF/TARYNL Voice ID: [id number] Report ID: [id number]
[2021-07-29] MEDS: KCL 20 MEQ/100 mL IVPB 20 MEQ/100 ML BAG IV SCH (20:16)
--- NOTE | 2021-07-29 23:40 | P.PN ---
Subjective Date of Service: 07/29/21 Subjective: Improving Review of Systems 10-point ROS is otherwise unremarkable Physical Examination - Vital Signs Temperature: 97.9 F Blood Pressure: 132/75 Pulse: 71 Respirations: 18 Pulse Ox (%): 98 - Physical Exam General: Alert, In no apparent distress HEENT: Atraumatic, PERRLA, EOMI Neck: Supple, JVD not distended Respiratory: Clear to auscultation bilaterally, Normal air movement Cardiovascular: Regular rate/rhythm, Normal S1 S2 Gastrointestinal: Normal bowel sounds, No tenderness Musculoskeletal: No tenderness Integumentary: No rashes Neurological: Normal speech, Normal tone, Normal affect Lymphatics: No axilla or inguinal lymphadenopathy - Studies Medications List Reviewed: Yes Assessment & Plan - Problems (Diagnosis) (1) Perforated diverticulum of large intestine Current Visit: Yes Status: Acute - Plan -aggressive IV hydration -IV antibiotics -outpatient colonoscopy -pain controlled -stool studies -monitor for possible perforation -surgery consultation if pain does not improve -CT abdomen pelvis pending Discharge Plan: Home Plan to discharge in: Greater than 2 days - Advance Directives Does patient have a Living Will: No Does patient have a Durable POA for Healthcare: No - Code Status/Comfort Care Code Status: Full Code Physician Review: Patient Assessed, Agree with Above Assessment and Plan Critical Care: No Time Spent Managing PTS Care (In Minutes): 35
[2021-07-30] MEDS: HEPARIN 5000 UNIT/ML 1 ML VIAL SQ SCH ×2 (00:26→10:35)
[2021-07-30] MEDS: PIPER TAZO 3.375 GM in NA CHLORIDE 0.9% 100 ML IV SCH ×2 (00:26→10:30)
[2021-07-30] MEDS: INSULIN -REGULAR HUMAN 50 UNIT/0.5 ML ML SQ SCH ×2 (07:30→11:30)
[2021-07-30 08:09] LABS: Potassium 3.7 mmol/L (3.5-5.1)
--- NOTE | 2021-07-30 10:29 | RAD REPORT ---
EXAM DESCRIPTION: CT - Abdomen Pelvis W Contrast - 07/30/2021 10:07 am CLINICAL HISTORY: DIVERTICULITIS COMPARISON: No comparisons TECHNIQUE: Biphasic, helical CT imaging of the abdomen and pelvis was performed following 100 ml non -ionic IV contrast. Oral contrast was given. All CT scans are performed using dose optimization technique as appropriate and may include automated exposure control or mA/KV adjustment according to patient size. FINDINGS: No suspicious findings in the lung bases. The liver, spleen, and pancreas show no suspicious findings. Liver shows borderline to mild fatty inf iltration. No portal vein abnormality. Gallbladder and biliary tree are also without suspicious findi ng. Symmetric renal function is seen with no hydronephrosis or suspicious renal mass. Multiple left-sided parapelvic cysts are present. No pyelonephritis or acute parenchymal process. No bladder abnormaliti es. No adrenal abnormalities. Note uterine or ovarian primary process seen. No distal esophageal abnormality seen. Patient has a very minimal hiatal hernia 0. There are no acute stomach findings. No small bowel abnormality identified. Retrocecal appendix is unremarkable. From c ecum through the descending colon there are no acute findings seen. Patient has moderately prominent sigmoid diverticulosis. There is a 13 centimeter long segment of the rectosigmoid colon that shows ir regular wall thickening. Fluid in stranding are present in the adjacent fat. In the cul de sac there is a 2.8 centimeter fluid collection that may be developing a rind. Early abscess is possible. This c an be monitored on subsequent imaging. Oral contrast has reached the distal rectum passing through th e area of involved colon. No extravasation of contrast. No extraluminal free air is present. No mass or bulky lymphadenopathy. A 3 centimeter periumbilical fat only hernia present. No acute bone findings. Prominent L5-S1 disc and endplate degenerative changes are present. IMPRESSION: Rectosigmoid circumferential wall thickening with fluid and stranding in the adjacent fa t. Moderately prominent sigmoid diverticulosis is present. Acute diverticulitis is the most likely etiology. A 2.8 cm fluid collection in the cul de sac shows early rim or rind formation. Early abscess is possi ble and continued follow-up is needed. No extravasation of oral contrast, extraluminal air or other surgically emergent finding.
[2021-07-30] MEDS: LEVOTHYROXINE SOD 0.025 MG TAB PO SCH (10:35)
[2021-07-30] MEDS: LOSARTAN POTASSIUM 50 MG TABLET PO SCH (10:35)
[2021-07-30] MEDS: PANTOPRAZOLE 40 MG INJ IVP SCH (10:37)
--- NOTE | 2021-07-30 10:59 | P.PN ---
Subjective Date of Service: 07/30/21 Chief Complaint: Abdominal pain. Subjective: Improving Physical Examination - Vital Signs Temperature: 97.0 F Blood Pressure: 173/81 Pulse: 51 Respirations: 14 Pulse Ox (%): 98 - Physical Exam General: Alert, In no apparent distress HEENT: Atraumatic, Mucous membr. moist/pink Gastrointestinal: Soft and benign, Non-distended, No ascites, No tenderness, No masses, No rebound, No guarding - Studies Medications List Reviewed: Yes Assessment And Plan - Current Problems (Diagnosis) (1) Diverticular disease of intestine with perforation and abscess Current Visit: Yes Status: Acute Plan: - continue antibiotics - advance diet - will need colonoscopy as outpatient - continue medical management - serial exams - patient has been non-tender and pain free tolerating diet, ok to DC home on antibiotics from surgical standpoint Physician Review: Patient Assessed, Agree with Above Assessment and Plan
--- NOTE | 2021-07-30 12:52 | P.PN ---
Subjective Date of Service: 07/30/21 Chief Complaint: Abdominal pain. Patient seen and examined at bedside, feeling much better today. Review of Systems 10-point ROS is otherwise unremarkable Physical Examination - Vital Signs Temperature: 97.0 F Blood Pressure: 173/81 Pulse: 51 Respirations: 14 Pulse Ox (%): 98 - Physical Exam General: Alert, In no apparent distress, Obese HEENT: Atraumatic, Normocephalic Neck: Supple Respiratory: Clear to auscultation bilaterally, Normal air movement Capillary refill: <2 Seconds Gastrointestinal: Normal bowel sounds Integumentary: No rashes, No breakdown, No significant lesion - Studies Medications List Reviewed: Yes Assessment And Plan - Plan Antibiotics Zosyn: 07/29current Assessment/plan Sigmoid diverticulitis with possible abscess Recommend continuing Zosyn during hospitalization Recommend discharging patient home on oral ciprofloxacin and oral Flagyl for 4 to [address] scan in 1 month with close follow-up outpatient with GI Diabetes Continue to current medication Anemia Continue to monitor H&H Plan of care discussed with Dr. Townsend Thank you for consultation Physician Review: Patient Assessed, Agree with Above Assessment and Plan
--- NOTE | 2021-07-30 14:58 | CON ---
Date of Consultation: 07/30/2021 Brief History Of Present Illness: The patient is a 55-year-old female with a past medical history of diabetes, hypertension, hypothyroidism, obesity, who presents with abdominal pain beginning in her l ower abdomen in the left lower quadrant and suprapubic area and had been getting progressively worse over the past 2 weeks. She went to an outside hospital where she had a CT scan performed that ultima tely showed that she had an intraabdominal abscess. As such, she was sent here from [facility] with the above-stated complaints. She was treated here with IV antibiotics, IV fluid hydra tion, pain medication and had significant improvement of symptoms where she said she is almost pain-f ree during my examination. Past Medical History: Significant for hypertension, hypothyroidism, obesity, diabetes, diverticulosi s. Allergies: NO KNOWN DRUG ALLERGIES. Medications: Include levothyroxine and losartan. Family History: Noncontributory. Social History: She denies smoking, alcohol, or recreational drug use. Review of Systems: Ten-point review of systems other than HPI, denies. Physical Examination: Vital Signs: At the time of my examination, her BMI is 35.1. Her blood pressure was 120/56, pulse w as 52, respiratory rate 16, temperature 97.1. Her pain was only 1 during my examination. SpO2 100% on room air. General: She is awake, alert, oriented. Psychiatric: Appropriate. Conversive. HEENT: Normocephalic. Sclerae anicteric. Mucous membranes moist. Oropharynx clear. Neck: Supple. No JVD. Chest: Normal expansion and excursion. Cardiovascular: Regular rate and rhythm. Pulmonary: Clear to auscultation bilaterally. Abdomen: Soft with mild left lower quadrant tenderness only to deep palpation. No rebound. No guar ding. No focal peritonitis. Extremities: No clubbing, cyanosis, edema. Skin: Warm and dry. Laboratory Data: Reveals a white blood cell count of 6.4, hemoglobin 10.9, hematocrit 33.8, platelet count was 319. Sodium 140, potassium 3.5, chloride 112, carbon dioxide 25, BUN 15, creatinine 0.8, glucose is 102, her calcium is 8.3, phosphorus was 3.4, magnesium 1.9, total bilirubin 0.3, AST 13, A LT 43, alkaline phosphatase is 79, lipase was 134 on admission. She had 1+ ketone, 1+ blood on urina lysis. Her leukocyte esterase was negative. Her COVID was negative. She had imaging performed at a n outside hospital which showed an abscess in the abdomen approximately 2.2 cm, 2.8 cm abscess in the pelvis. Assessment And Plan: This is a 55-year-old female who comes in with a likely diverticular abscess. 1.IV fluid hydration. 2.Antibiotic coverage. 3.Serial abdominal exams. 4.Continue medical management. 5.We will consider reimaging. 6.If the patient continues to improve, we will likely advance diet and allow the patient to go home to be treated outpatient with antibiotics. 7.The patient has been instructed to get followup colonoscopy when this completely resolves. I have explained the risks, benefits, and alternatives of the above stated plan. SHONDA/IRINA Voice ID: [id number] Report ID: [id number]
[2021-07-30 16:34] VITALS: BP 127/62; TEMP 97.4
== END 2021-07-30 18:00 | disposition home or self-care (01) | DRG 392 ==
LOC: ER 13:59 → ERHOLD 16:50 → 2ND 18:29
PROVIDERS: ADMIT Hospitalist; ATTEND Hospitalist
DX: K57.20 Diverticulitis of large intestine with perforation and abscess without bleeding (principal); E44.0 Moderate protein-calorie malnutrition; E87.6 Hypokalemia; E03.9 Hypothyroidism, unspecified; E11.9 Type 2 diabetes mellitus without complications; D63.8 Anemia in other chronic diseases classified elsewhere; I10 Essential (primary) hypertension; E66.01 Morbid (severe) obesity due to excess calories; Z68.35 Body mass index [BMI] 35.0-35.9, adult; Z71.3 Dietary counseling and surveillance; Z79.899 Other long term (current) drug therapy; Z91.14 Patient's other noncompliance with medication regimen; Z20.822 Contact with and (suspected) exposure to COVID-19
CPT/HCPCS: 36415; 74177; 80048; 80053; 81003; 82947; 83690; 83735; 84100; 85025; 96374; 99285; C9113; J0360; J1644; J2405; J2543; J3480; J7030; Q9967; U0003